=== PATIENT | female | born 1975 | race Caucasian/White ===

== ENCOUNTER 2017-12-25 09:54 | Day surgery (SDC) | payer MEDICARE ==
[~2017-12-25] VITALS: Ht 170.2 cm; Wt 57.7 kg
[~2017-12-25 09:54] MED LIST: AMIT25 PO; AMLO10 PO; AMLO5 PO; ASPI325; AZIT200SU; Amlodipine Bes2.5 MG PO; Antivert25 MG PO; Ativan1 MG PO; BACL10 PO; BUPR150T2 PO; CODACE30 PO; CYCL10 PO; DICL25ER PO; DIPH50 PO; Depo-Prove150 MG/11 IM; ENOX30I; ENOX40I SC; ENOX40I SUBQ; ESCI20 PO; FAMO20 PO; GABA300; GABA300 PO; HYDACE10B PO; HYDACE5 PO; HYDPAM25 PO; Inderal40 MG PO; LANS30EC PO; LISI5; LORA.5 PO; LOSA25 PO; METCAR500 PO; METPRE4DP PO; MULVITMINE; NEBI10 PO; Norco 5-325 Ta1 EACH PO; ONDA4ODT MM; ONDA8 PO; OXYC1TAB11 PO; OXYC5; OXYC5 PO; PARO20 PO; PARO30 PO; Percocet 5-3251 EACH PO; RANI150 PO; RXHYD5325 PO; RXHYDACE PO; RXLORA1 PO; RXTRAM50 PO; TERB250 PO; TIZA4 PO; TRAM50; TRAM50 PO; Tylenol325 MG PO; Ultram50 MG PO; WARF2; WARF5 PO; WARF6 PO; WARF7.5 PO; Zofran Odt4 MG SL
== END 2017-12-25 13:44 | disposition home or self-care (01) ==
LOC: ORSCSDS 09:54
PROVIDERS: Internal Medicine Gastroenterology
PROC: 0DBM8ZX Excision of Descending Colon, Via Natural or Artificial Opening Endoscopic, Diagnostic (ICD-10-PCS; principal; 2017-12-25 11:00)
PROC: 0DBH8ZX Excision of Cecum, Via Natural or Artificial Opening Endoscopic, Diagnostic (ICD-10-PCS; principal; 2017-12-25 11:00)
PROC: 0DBN8ZX Excision of Sigmoid Colon, Via Natural or Artificial Opening Endoscopic, Diagnostic (ICD-10-PCS; principal; 2017-12-25 11:00)
PROC: 0DBL8ZX Excision of Transverse Colon, Via Natural or Artificial Opening Endoscopic, Diagnostic (ICD-10-PCS; principal; 2017-12-25 11:00)
DX: Z86.010 Personal history of colon polyps (principal); D12.0 Benign neoplasm of cecum; D12.3 Benign neoplasm of transverse colon; D12.4 Benign neoplasm of descending colon; D12.5 Benign neoplasm of sigmoid colon; K64.8 Other hemorrhoids; K57.30 Diverticulosis of large intestine without perforation or abscess without bleeding; Z86.718 Personal history of other venous thrombosis and embolism; D68.51 Activated protein C resistance; I10 Essential (primary) hypertension; F41.8 Other specified anxiety disorders; Z87.891 Personal history of nicotine dependence; Z79.01 Long term (current) use of anticoagulants; Z79.899 Other long term (current) drug therapy
CPT/HCPCS: 88305; J2250; J7120

== ENCOUNTER 2018-03-15 00:26 | Emergency (ER) | payer MEDICARE, SELFPAY ==
[~2018-03-15] VITALS: Ht 167.6 cm; Wt 59.0 kg
[2018-03-15 00:53] LABS: BASOPHILS ABSOLUTE AUTO 0.09 K/mm3 (0.00-0.23); BASOPHILS PERCENT AUTO 1 % (0-2); EOSINOPHILS ABSOLUTE AUTO 0.07 K/mm3 (0.00-0.68); EOSINOPHILS PERCENT AUTO 1 % (0-6); Hematocrit 44.3 % (33.0-51.0); Hemoglobin 15.6 g/dL (11.5-16.0); IMMATURE GRAN ABSOLUTE AUTO 0.05 K/mm3 (0.00-0.10); IMMATURE GRAN PERCENT AUTO 0 % (0-1); LYMPHOCYTES ABSOLUTE AUTO 5.33 K/mm3 (0.84-5.20); LYMPHOCYTES PERCENT AUTO 46 % (21-46); MONOCYTES ABSOLUTE AUTO 0.91 K/mm3 (0.16-1.47); MONOCYTES PERCENT AUTO 8 % (4-13); Mean Corpuscular HGB 34.4 pg (26.0-34.0); Mean Corpuscular HGB Conc 35.2 g/dL (31.5-36.5); Mean Corpuscular Volume 98 fL (80-100); Mean Platelet Volume 9.3 fL (9.1-12.4); NEUTROPHILS ABSOLUTE AUTO 5.15 K/mm3 (1.96-9.15); NEUTROPHILS PERCENT AUTO 45 % (41-73); Platelet Count 292 K/mm3 (150-400); RDW Coefficient Variation 11.6 % (11.7-14.2); RDW Standard Deviation 41.8 fL (35.1-46.3); Red Blood Cell Count 4.54 M/mm3 (3.80-5.20)
[2018-03-15 01:17] LABS: Alanine Aminotransfer (ALT/SGP 35 U/L (12-78); Albumin, Blood 4.2 g/dL (3.4-5.0); Alk Phos 70 U/L (50-136); Anion Gap 11 mmol/L (6-16); Aspartate Aminotrans (AST/SGOT 38 U/L (12-37); Bilirubin, Total 0.3 mg/dL (0.1-1.0); Blood Urea Nitrogen 8 mg/dL (8-24); Bun/Creatinine Ratio 12.7 (12.0-20.0); CO2, Blood 22 mmol/L (21-32); Calcium, Blood 8.3 mg/dL (8.5-10.1); Chloride, Blood 111 mmol/L (98-108); Creatinine, Blood 0.63 mg/dL (0.40-1.00); Globulin, Blood 4.1 g/dL (2.2-4.0); Glomerular Filtration Rate >60 (60-); Glucose, Blood 99 mg/dL (70-99); Potassium, Blood 4.9 mmol/L (3.5-5.5); Salicylate 5.2 mg/dL (2.8-20.0); Sodium, Blood 144 mmol/L (136-145); Total Protein, Blood 8.3 g/dL (6.4-8.2)
[2018-03-15 01:25] LABS: Acetaminophen, Random <2.0 ug/mL (10.0-30.0); Ethanol (Alcohol), Blood, Med 367 mg/dL
== END 2018-03-15 01:52 | disposition home or self-care (01) ==
LOC: ER 00:26
PROVIDERS: Emergency Medicine
DX: T40.2X1A Poisoning by other opioids, accidental (unintentional), initial encounter (principal); F10.129 Alcohol abuse with intoxication, unspecified; I10 Essential (primary) hypertension; F32.9 Major depressive disorder, single episode, unspecified; Z88.5 Allergy status to narcotic agent; Z88.8 Allergy status to other drugs, medicaments and biological substances; Z79.899 Other long term (current) drug therapy; Z79.01 Long term (current) use of anticoagulants; Z87.891 Personal history of nicotine dependence; Y90.8 Blood alcohol level of 240 mg/100 ml or more
CPT/HCPCS: 80053; 84443; 85025; 99285; G0480

== ENCOUNTER → 2018-03-21 | Outpatient (CLI) | payer MEDICARE, SELFPAY | LOC: LAB 16:48 → LAB SHORT 16:48 | PROVIDERS: Registered Nurse Community Health | DX: Z12.4 Encounter for screening for malignant neoplasm of cervix (principal) | CPT/HCPCS: 87624; G0123 ==

== ENCOUNTER 2019-03-27 16:58 | Emergency (ER) | payer MEDICARE ==
[~2019-03-27] VITALS: Ht 170.2 cm; Wt 63.5 kg
[2019-03-27] MEDS ORDERED: TRAM50 PO (18:20)
== END 2019-03-27 18:27 | disposition home or self-care (01) ==
LOC: ER 16:58
DX: S50.811A Abrasion of right forearm, initial encounter (principal); M54.2 Cervicalgia; G89.29 Other chronic pain; M25.511 Pain in right shoulder; W13.4XXA Fall from, out of or through window, initial encounter; Z88.5 Allergy status to narcotic agent; Z88.8 Allergy status to other drugs, medicaments and biological substances; Z79.899 Other long term (current) drug therapy; Z79.01 Long term (current) use of anticoagulants; I10 Essential (primary) hypertension; F32.9 Major depressive disorder, single episode, unspecified; G40.909 Epilepsy, unspecified, not intractable, without status epilepticus; Z87.891 Personal history of nicotine dependence
CPT/HCPCS: 72040; 73030; 73080; 73110; 99283-25

== ENCOUNTER 2020-08-03 20:02 | Observation (INO) | payer SELFPAY ==
[~2020-08-03] VITALS: Ht 170.2 cm; Wt 66.2 kg
[~2020-08-03 20:02] MED LIST changes: -Inderal40 MG PO; -WARF5 PO
[2020-08-03 20:28] LABS: BASOPHILS ABSOLUTE AUTO 0.16 K/mm3 (0.00-0.23); BASOPHILS PERCENT AUTO 2 % (0-2); EOSINOPHILS ABSOLUTE AUTO 0.17 K/mm3 (0.00-0.68); EOSINOPHILS PERCENT AUTO 2 % (0-6); Hematocrit 42.4 % (33.0-51.0); Hemoglobin 14.7 g/dL (11.5-16.0); IMMATURE GRAN ABSOLUTE AUTO 0.04 K/mm3 (0.00-0.10); IMMATURE GRAN PERCENT AUTO 0 % (0-1); LYMPHOCYTES PERCENT AUTO 42 % (21-46); MONOCYTES ABSOLUTE AUTO 0.95 K/mm3 (0.16-1.47); MONOCYTES PERCENT AUTO 10 % (4-13); Mean Corpuscular HGB 34.8 pg (26.0-34.0); Mean Corpuscular HGB Conc 34.7 g/dL (31.5-36.5); Mean Corpuscular Volume 100 fL (80-100); NEUTROPHILS ABSOLUTE AUTO 4.15 K/mm3 (1.96-9.15); NEUTROPHILS PERCENT AUTO 44 % (41-73); Platelet Count 308 K/mm3 (150-400); RDW Coefficient Variation 11.8 % (11.7-14.2); RDW Standard Deviation 43.7 fL (35.1-46.3); Red Blood Cell Count 4.23 M/mm3 (3.80-5.20); White Blood Cell Count 9.47 K/mm3 (4.00-11.30)
[2020-08-03 20:40] LABS: Alanine Aminotransfer (ALT/SGP 36 U/L (12-78); Albumin, Blood 4.2 g/dL (3.4-5.0); Albumin/Globulin Ratio 1.1 (0.8-1.8); Alk Phos 69 U/L (50-136); Anion Gap 7 mmol/L (6-16); Aspartate Aminotrans (AST/SGOT 53 U/L (12-37); Bilirubin, Total 0.2 mg/dL (0.1-1.0); Blood Urea Nitrogen 8 mg/dL (8-24); Bun/Creatinine Ratio 11.2 (12.0-20.0); CO2, Blood 25 mmol/L (21-32); Calcium, Blood 8.8 mg/dL (8.5-10.1); Chloride, Blood 114 mmol/L (98-108); Creatinine, Blood 0.72 mg/dL (0.40-1.00); Globulin, Blood 3.9 g/dL (2.2-4.0); Glomerular Filtration Rate >60 (60-); Glucose, Blood 89 mg/dL (70-99); Salicylate 5.9 mg/dL (2.8-20.0); Sodium, Blood 146 mmol/L (136-145); Thyroxine (T4) 7.1 ug/dL (4.8-13.9); Total Protein, Blood 8.1 g/dL (6.4-8.2)
[2020-08-03 21:15] LABS: Ethanol (Alcohol), Blood, Med 412 mg/dL
[2020-08-03 21:16] LABS: Acetaminophen, Random <2.0 ug/mL (10.0-30.0)
[2020-08-03] MEDS ORDERED: WARF5 (23:02)
[2020-08-03] MEDS ORDERED: Inderal40 MG PO (23:03)
[2020-08-03] MEDS ORDERED: SERT50 PO (23:03)
[2020-08-03] MEDS ORDERED: BUSP10 PO (23:04)
[2020-08-03] MEDS ORDERED: FENOFIBRATE130 MG PO (23:04)
[2020-08-03 23:18] LABS: Source, Urine Clean Catch
[2020-08-03 23:25] LABS: Appearance, Urine Clear (Clear); Bilirubin, Urine Neg (Neg); Blood, Urine 1+ (Neg); Color, Urine Yellow (P-Yellow); Glucose Qualitative, Urine Neg (Neg); Ketones, Urine Neg (Neg); Leukocyte Esterase, Urine Neg (Neg); Nitrite, Urine Neg (Neg); Protein, Urine Neg (Neg); Urobilinogen, Urine NORM (Normal)
--- NOTE | 2020-08-03 23:33 | NUR ---
ASSUMED PT CARE PT ARRIVED FROM ED ON GURBIXBY. PT ALERT AND ORIENTED AND ABLE TO MAKE NEEDS KNOWN. COOPERATIVE WITH CARES AT FIRST; HOWEVER, ONCE REINFORMED REGARDING TWO MD HOLD AND NEEDING TO READ PT HER CIVIL RIGHTS; SHE DECLINED AND STATED SHE "WE AREN'T DOING THAT, I WASN'T TRYING TO KILL MYSELF." "I HAVE APPTS TOMORROW AND ALL THIS WEEK. I SEE MY KIDS ON SUNDAY." INFORMED PT THAT THEY COULD READDRESS TWO MD HOLD STATUS TOMORROW IN THE MORNING WITH THE PHYSICIANS. PT KEPT SAYING NO THAT SHE CAN'T STAY HERE AND THAT SHE NEEDS HER MEDS. ASKED WHAT PHARMACY SHE USES OR IF SHE CAN TELL ME WHAT SHE TAKES. PT REFUSED SAYING HER DOCTORS IN [place] STATED NOT TO RECEIVE ANY CARE HERE AT [facility]. STATES HER AUNT IS ON THE SHUTTLER AND THEREFORE, SHE CAN'T GIVE ME ANY INFORMATION. PT BECAME MORE UPSET WHEN SHE WAS INFORMED THAT SHE WAS BEING MONITORED ON THE CAMERA SYSTEM AND WOULD HAVE A SITTER OUTSIDE HER DOOR D/T HER BEING A HIGH SUICIDE RISK. PT STATED SHE WASN'T TRYING TO KILL HERSELF, BUT THEN STATED THAT WHO EVER FOUND HER SHOULD HAVE LEFT HER TO . REINFORCED TO PT THAT STATEMENTS LIKE THAT DEMONSTRATES SUICIDE IDEATION. SHE YELLED, "NO" AND THAT SHE ONLY TOOK "4 PILLS" REFERRING TO HER PROPRANOLOL 20MG TABLETS. PT REFUSED BLOOD IF NEEDED AND STATED WE CAN GIVE INFO OUT ONLY TO HER MOM AND DAD. CALL LIGHT IS WITHIN REACH. NS INFUSING AT 100MLS/HR. BP'S TRENDING DOWN; LAST BP 68/60; HR 69; RESP RATE 20; SPO2 97% ON RA. CALL LIGHT IS WITHIN REACH; WILL CONTINUE TO MONITOR BP AND PULSE AND TREAT ACCORDINGLY.
[2020-08-03 23:39] LABS: U Amphetamine Screen Not Detected; U Barbituate Screen Not Detected; U Benzodiazapine Screen Not Detected; U Buprenorphine Screen Not Detected; U Cannabinoids Screen Not Detected; U Cocaine Screen Not Detected; U Methadone Screen Not Detected; U Methamphetamine Screen Not Detected; U Opiates Screen Not Detected; U Oxycodone Screen DETECTED; U Phencyclidine Screen Not Detected; U Propoxyphene Screen Not Detected
[2020-08-03 23:41] LABS: Bacteria Many /hpf; Red Blood Cells, Urine Rare /hpf (0-2); Squamous Epithelial Cells Few /hpf (Few)
--- NOTE | 2020-08-04 00:33 | NUR ---
POISON CONTROL ALEX CALLED FOR AN UPDATE. FULL SET OF VITALS GIVEN. RECOMMENDATION TO REDRAW ASA LEVEL AT 0200 TO SEE IF WE ARE STILL TRENDING UP. ALSO RECOMMENDED TO GIVE BENZODIAZAPINES INSTEAD OF HALDOL D/T POTENTIAL CARDIAC SIDE EFFECTS, WELL TO CONSIDER DOPAMINE IF BP'S CAN'T SUSTAIN WITH FLUIDS.
[2020-08-04 03:22] LABS: BASOPHILS ABSOLUTE AUTO 0.08 K/mm3 (0.00-0.23); BASOPHILS PERCENT AUTO 1 % (0-2); EOSINOPHILS PERCENT AUTO 2 % (0-6); Hematocrit 35.2 % (33.0-51.0); Hemoglobin 12.4 g/dL (11.5-16.0); IMMATURE GRAN ABSOLUTE AUTO 0.02 K/mm3 (0.00-0.10); IMMATURE GRAN PERCENT AUTO 0 % (0-1); LYMPHOCYTES PERCENT AUTO 36 % (21-46); MONOCYTES ABSOLUTE AUTO 1.08 K/mm3 (0.16-1.47); MONOCYTES PERCENT AUTO 16 % (4-13); Mean Corpuscular HGB 34.5 pg (26.0-34.0); Mean Corpuscular HGB Conc 35.2 g/dL (31.5-36.5); Mean Corpuscular Volume 98 fL (80-100); Mean Platelet Volume 9.6 fL (9.1-12.4); NEUTROPHILS ABSOLUTE AUTO 3.05 K/mm3 (1.96-9.15); NEUTROPHILS PERCENT AUTO 45 % (41-73); Platelet Count 227 K/mm3 (150-400); RDW Coefficient Variation 11.7 % (11.7-14.2); RDW Standard Deviation 42.8 fL (35.1-46.3); Red Blood Cell Count 3.59 M/mm3 (3.80-5.20); White Blood Cell Count 6.73 K/mm3 (4.00-11.30)
[2020-08-04 03:44] LABS: Alanine Aminotransfer (ALT/SGP 29 U/L (12-78); Albumin, Blood 3.3 g/dL (3.4-5.0); Albumin/Globulin Ratio 1.1 (0.8-1.8); Alk Phos 52 U/L (50-136); Anion Gap 8 mmol/L (6-16); Aspartate Aminotrans (AST/SGOT 44 U/L (12-37); Bilirubin, Total 0.2 mg/dL (0.1-1.0); Blood Urea Nitrogen 7 mg/dL (8-24); Bun/Creatinine Ratio 12.1 (12.0-20.0); CO2, Blood 20 mmol/L (21-32); Calcium, Blood 8.2 mg/dL (8.5-10.1); Chloride, Blood 117 mmol/L (98-108); Creatinine, Blood 0.58 mg/dL (0.40-1.00); Globulin, Blood 2.9 g/dL (2.2-4.0); Glomerular Filtration Rate >60 (60-); Glucose, Blood 83 mg/dL (70-99); Potassium, Blood 3.5 mmol/L (3.5-5.5); Sodium, Blood 145 mmol/L (136-145); Total Protein, Blood 6.2 g/dL (6.4-8.2)
--- NOTE | 2020-08-04 03:58 | NUR ---
POISON CONTROL SPOKE WITH GELACIO REGARDING ASPIRIN LEVEL. NO FURTHER NEED TO REDRAW ASPIRIN LEVEL PER RECOMMENDATION.
[2020-08-04 04:39] LABS: International Normalized Ratio 2.51; Prothrombin Time Results 25.5 Sec (9.7-11.5)
--- NOTE | 2020-08-04 06:35 | NUR ---
END OF SHIFT SUMMARY NO SIGNIFICANT CHANGES SINCE LAST ENTRY. PT HAS SLEPT MOST OF SHIFT. PT VERY RESISTANT TO CARE; REFUSED LABS. THEREFORE, HAD TO DRAW FROM PERIPHERAL IV. POISON CONTROL UPDATED REGARDING ASPIRIN LAB LEVELS. STATED THEY WOULD CALL FOR AN UPDATE AGAIN LATER IN THE MORNING. BP'S STABLE WITH SBP >90 AND MAP >60. NSR WITH HR 70-80'S. PT UP TO BSC X1 WITH STANDBY ASSIST NEEDED FOR CORD MANAGEMENT. PT DENIES SUICIDE IDEATION. CONSULT PLACED FOR PSYCH. CALL LIGHT WITHIN REACH. WILL CONTINUE TO MONITOR UNTIL REPORT IS HANDED OFF TO ONCOMING RN.
--- NOTE | 2020-08-04 07:55 | NUR ---
Received report from Shira SANTOS. Patient laying supine in bed and awakens easily for report. She denies any suicide attempt and current suicidal idealations. She states she wants to see Psychiatry asas this am as she has appts. she needs to go to. I advised her it would probably be around [id number] befor he gets to ICU and she cloased eye and returned to resting. She is on RA and sats >90%. She is independent in bed and is able to position self for comfort. She is alert and oriented and is able to communicate her needs. ROBERTO. VSS, See EMR. She has 20ga IV left hand and is infusing NS at 100ml/hr. She is afebrile at 98.0. She is able to use bedside cammode.
--- NOTE | 2020-08-04 08:04 | NUR ---
She is on high risk suicide watch and is on ca,era and sitter outside door.
--- NOTE | 2020-08-04 09:30 | NUR ---
Renee from by to talk with patient, Dr Stephens by as well. Patient has been pleasant and cooperative with care. Continues to deny suicidal idealation. patient independent in room .
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
--- NOTE | 2020-08-04 11:17 | NUR ---
Dr Stephens called and has talked with Dr reagan and has released hold and is discharging patient home with follow up to [facility] toomorrow.
--- NOTE | 2020-08-04 11:56 | NUR ---
PATIENT FATHER BROUGHT CLOSES AND SHE GOT DRESSED. SHE WAS GIVEN WRITTEN DISCHARGE INSTRUCTIONS AND RETURNED UNDERSTANDING. IV'S BILATERAL PULLED INTACT AND WRAPPED ION COHBAN. SHE AMBULATED TO EXIT AND WENT HOME POV, REFUSED WHEELCHAIR TO EXIT.
== END 2020-08-04 11:55 | disposition home or self-care (01) ==
LOC: ER 20:02 → ICUW 20:03
PROVIDERS: Emergency Medicine; ADMIT Internal Medicine
DX: T44.7X2A Poisoning by beta-adrenoreceptor antagonists, intentional self-harm, initial encounter (principal); F10.129 Alcohol abuse with intoxication, unspecified; F32.9 Major depressive disorder, single episode, unspecified; D68.51 Activated protein C resistance; I10 Essential (primary) hypertension; F17.210 Nicotine dependence, cigarettes, uncomplicated; Y90.8 Blood alcohol level of 240 mg/100 ml or more; Z79.01 Long term (current) use of anticoagulants; Z86.69 Personal history of other diseases of the nervous system and sense organs; Z88.5 Allergy status to narcotic agent; Z88.8 Allergy status to other drugs, medicaments and biological substances; Z79.899 Other long term (current) drug therapy
CPT/HCPCS: 36415; 71045; 80053; 81001; 81025; 82330; 84436; 85025; 85610; 87077; 87086; 87186; 93005; 93010; 96361; 96365; 96366; 96375; 99285-25; A9270; G0378; G0480; J0610; J1200; J1630; J7030

== ENCOUNTER 2020-09-11 22:15 | Emergency (ER) | payer MEDICARE ==
[~2020-09-11] VITALS: Ht 167.6 cm; Wt 68.0 kg
[~2020-09-11 22:15] MED LIST changes: +BUSP10 PO; +FENOFIBRATE130 MG PO; +Inderal40 MG PO; +SERT50 PO; +WARF5
== END 2020-09-11 23:06 | disposition home or self-care (01) ==
LOC: ER 22:15
DX: S60.221A Contusion of right hand, initial encounter (principal); I10 Essential (primary) hypertension; F32.9 Major depressive disorder, single episode, unspecified; Z79.01 Long term (current) use of anticoagulants; Z88.5 Allergy status to narcotic agent; Z88.8 Allergy status to other drugs, medicaments and biological substances; Z79.899 Other long term (current) drug therapy; Z87.891 Personal history of nicotine dependence; W01.10XA Fall on same level from slipping, tripping and stumbling with subsequent striking against unspecified object, initial encounter
CPT/HCPCS: 36415; 73130; 99283-25

== ENCOUNTER 2020-11-21 23:25 | Emergency (ER) | payer MEDICARE ==
[~2020-11-21] VITALS: Ht 170.2 cm; Wt 67.6 kg
[2020-11-22 02:56] LABS: BASOPHILS ABSOLUTE AUTO 0.07 K/mm3 (0.00-0.23); BASOPHILS PERCENT AUTO 1 % (0-2); EOSINOPHILS ABSOLUTE AUTO 0.26 K/mm3 (0.00-0.68); EOSINOPHILS PERCENT AUTO 4 % (0-6); Hematocrit 32.8 % (33.0-51.0); Hemoglobin 10.2 g/dL (11.5-16.0); IMMATURE GRAN ABSOLUTE AUTO 0.06 K/mm3 (0.00-0.10); IMMATURE GRAN PERCENT AUTO 1 % (0-1); LYMPHOCYTES ABSOLUTE AUTO 1.33 K/mm3 (0.84-5.20); LYMPHOCYTES PERCENT AUTO 20 % (21-46); MONOCYTES ABSOLUTE AUTO 1.11 K/mm3 (0.16-1.47); MONOCYTES PERCENT AUTO 16 % (4-13); Mean Corpuscular HGB 26.8 pg (26.0-34.0); Mean Corpuscular HGB Conc 31.1 g/dL (31.5-36.5); Mean Corpuscular Volume 86 fL (80-100); Mean Platelet Volume 10.1 fL (9.1-12.4); NEUTROPHILS ABSOLUTE AUTO 3.93 K/mm3 (1.96-9.15); NEUTROPHILS PERCENT AUTO 58 % (41-73); Platelet Count 372 K/mm3 (150-400); RDW Coefficient Variation 16.5 % (11.7-14.2); RDW Standard Deviation 51.6 fL (35.1-46.3); Red Blood Cell Count 3.81 M/mm3 (3.80-5.20); White Blood Cell Count 6.76 K/mm3 (4.00-11.30)
[2020-11-22 03:15] LABS: Alanine Aminotransfer (ALT/SGP 16 U/L (12-78); Albumin, Blood 3.1 g/dL (3.4-5.0); Albumin/Globulin Ratio 0.7 (0.8-1.8); Alk Phos 70 U/L (50-136); Anion Gap 6 mmol/L (6-16); Aspartate Aminotrans (AST/SGOT 14 U/L (12-37); Bilirubin, Total 0.2 mg/dL (0.1-1.0); Blood Urea Nitrogen 7 mg/dL (8-24); Bun/Creatinine Ratio 10.5 (12.0-20.0); CO2, Blood 26 mmol/L (21-32); Calcium, Blood 9.2 mg/dL (8.5-10.1); Chloride, Blood 106 mmol/L (98-108); Creatinine, Blood 0.66 mg/dL (0.40-1.00); Globulin, Blood 4.3 g/dL (2.2-4.0); Glomerular Filtration Rate >60 (60-); Glucose, Blood 113 mg/dL (70-99); Potassium, Blood 3.8 mmol/L (3.5-5.5); Sodium, Blood 138 mmol/L (136-145); Total Protein, Blood 7.4 g/dL (6.4-8.2)
[2020-11-22 03:51] LABS: Influenza A, PCR NEGATIVE (NEGATIVE); Influenza B, PCR NEGATIVE (NEGATIVE); Resp Syncytial Virus, PCR NEGATIVE (NEGATIVE); SARS-Cov-2 (COVID-19) PCR, MMC NEGATIVE (NEGATIVE)
[2021-02-25] MEDS ORDERED: LOSA50 PO (11:50)
[2021-02-25] MEDS ORDERED: BUPR75 PO (11:50)
[2021-02-25] MEDS ORDERED: FAMO20 PO (11:50)
[2021-02-25] MEDS ORDERED: PREG150 PO (11:51)
== END 2020-11-22 03:23 | disposition short-term general hospital (02) ==
LOC: ER 23:25
PROVIDERS: Emergency Medicine
DX: R51.9 Headache, unspecified (principal)
CPT/HCPCS: 0241U; 36415; 72132; 80053; 82947; 85025; 96374; 99285-25; A9270; J2270; Q9967

== ENCOUNTER 2021-01-02 19:23 | Emergency (ER) | payer MEDICARE ==
[~2021-01-02] VITALS: Ht 167.6 cm; Wt 72.6 kg
== END 2021-01-02 20:19 | disposition home or self-care (01) ==
LOC: ER 19:23
DX: Z02.89 Encounter for other administrative examinations (principal); I10 Essential (primary) hypertension; G40.909 Epilepsy, unspecified, not intractable, without status epilepticus; F17.210 Nicotine dependence, cigarettes, uncomplicated; Z79.01 Long term (current) use of anticoagulants; Z88.5 Allergy status to narcotic agent; Z88.8 Allergy status to other drugs, medicaments and biological substances; Z88.1 Allergy status to other antibiotic agents
CPT/HCPCS: 99282

== ENCOUNTER 2021-08-29 06:30 | Emergency (ER) | payer MEDICARE, OTHER ==
[~2021-08-29] VITALS: Ht 170.2 cm; Wt 61.2 kg
[~2021-08-29 06:30] MED LIST changes: +BUPR75 PO; +LOSA50 PO; +PREG150 PO
== END 2021-08-29 06:58 | disposition left against medical advice (07) ==
LOC: ER 06:30
DX: Z53.21 Procedure and treatment not carried out due to patient leaving prior to being seen by health care provider (principal)

== ENCOUNTER 2021-08-31 09:42 | Emergency (ER) | payer MEDICARE, OTHER ==
[~2021-08-31] VITALS: Ht 170.2 cm; Wt 59.0 kg
[2021-08-31 10:23] LABS: BASOPHILS PERCENT AUTO 1 % (0-2); EOSINOPHILS ABSOLUTE AUTO 0.01 K/mm3 (0.00-0.68); EOSINOPHILS PERCENT AUTO 0 % (0-6); Hematocrit 36.5 % (33.0-51.0); Hemoglobin 13.4 g/dL (11.5-16.0); IMMATURE GRAN ABSOLUTE AUTO 0.03 K/mm3 (0.00-0.10); IMMATURE GRAN PERCENT AUTO 0 % (0-1); LYMPHOCYTES PERCENT AUTO 7 % (21-46); MONOCYTES ABSOLUTE AUTO 0.84 K/mm3 (0.16-1.47); MONOCYTES PERCENT AUTO 11 % (4-13); Mean Corpuscular HGB 35.7 pg (26.0-34.0); Mean Corpuscular HGB Conc 36.7 g/dL (31.5-36.5); Mean Corpuscular Volume 97 fL (80-100); Mean Platelet Volume 9.7 fL (9.1-12.4); NEUTROPHILS ABSOLUTE AUTO 6.04 K/mm3 (1.96-9.15); NEUTROPHILS PERCENT AUTO 80 % (41-73); Platelet Count 211 K/mm3 (150-400); RDW Coefficient Variation 12.4 % (11.7-14.2); RDW Standard Deviation 44.8 fL (35.1-46.3); Red Blood Cell Count 3.75 M/mm3 (3.80-5.20); White Blood Cell Count 7.52 K/mm3 (4.00-11.30)
[2021-08-31 10:39] LABS: Prothrombin Time Results 57.1 Sec (9.7-11.5)
[2021-08-31 10:47] LABS: Alanine Aminotransfer (ALT/SGP 151 U/L (12-78); Albumin, Blood 4.4 g/dL (3.4-5.0); Albumin/Globulin Ratio 1.2 (0.8-1.8); Alk Phos 114 U/L (50-136); Anion Gap 14 mmol/L (6-16); Aspartate Aminotrans (AST/SGOT 155 U/L (12-37); Bilirubin, Total 1.2 mg/dL (0.1-1.0); Blood Urea Nitrogen 6 mg/dL (8-24); Bun/Creatinine Ratio 7.8 (12.0-20.0); CO2, Blood 26 mmol/L (21-32); Calcium, Blood 9.9 mg/dL (8.5-10.1); Chloride, Blood 97 mmol/L (98-108); Creatinine, Blood 0.77 mg/dL (0.40-1.00); Globulin, Blood 3.8 g/dL (2.2-4.0); Glomerular Filtration Rate >60 (60-); Glucose, Blood 129 mg/dL (70-99); Potassium, Blood 3.5 mmol/L (3.5-5.5); Sodium, Blood 137 mmol/L (136-145); Total Protein, Blood 8.2 g/dL (6.4-8.2)
[2021-08-31 11:02] LABS: International Normalized Ratio 6.12
[2021-08-31 12:37] LABS: Influenza A, PCR NEGATIVE (NEGATIVE); Influenza B, PCR NEGATIVE (NEGATIVE); Resp Syncytial Virus, PCR NEGATIVE (NEGATIVE); SARS-Cov-2 (COVID-19) PCR, MMC NEGATIVE (NEGATIVE)
[2021-08-31 15:13] LABS: International Normalized Ratio 1.79
[2021-08-31 15:32] LABS: Prothrombin Time Results 18.1 Sec (9.7-11.5)
[2021-08-31 16:07] LABS: BASOPHILS ABSOLUTE AUTO 0.04 K/mm3 (0.00-0.23); BASOPHILS PERCENT AUTO 1 % (0-2); EOSINOPHILS PERCENT AUTO 0 % (0-6); Hemoglobin 11.1 g/dL (11.5-16.0); IMMATURE GRAN ABSOLUTE AUTO 0.03 K/mm3 (0.00-0.10); IMMATURE GRAN PERCENT AUTO 1 % (0-1); LYMPHOCYTES ABSOLUTE AUTO 0.59 K/mm3 (0.84-5.20); LYMPHOCYTES PERCENT AUTO 11 % (21-46); MONOCYTES ABSOLUTE AUTO 0.56 K/mm3 (0.16-1.47); MONOCYTES PERCENT AUTO 11 % (4-13); Mean Corpuscular HGB 35.8 pg (26.0-34.0); Mean Corpuscular HGB Conc 35.8 g/dL (31.5-36.5); Mean Corpuscular Volume 100 fL (80-100); Mean Platelet Volume 9.5 fL (9.1-12.4); NEUTROPHILS PERCENT AUTO 77 % (41-73); Platelet Count 167 K/mm3 (150-400); RDW Coefficient Variation 12.9 % (11.7-14.2); RDW Standard Deviation 47.1 fL (35.1-46.3); White Blood Cell Count 5.22 K/mm3 (4.00-11.30)
== END 2021-08-31 20:36 | disposition short-term general hospital (02) ==
LOC: ER 09:42
PROVIDERS: Emergency Medicine
DX: K92.2 Gastrointestinal hemorrhage, unspecified (principal); R79.1 Abnormal coagulation profile; I10 Essential (primary) hypertension; G40.909 Epilepsy, unspecified, not intractable, without status epilepticus; F17.210 Nicotine dependence, cigarettes, uncomplicated; Z88.8 Allergy status to other drugs, medicaments and biological substances; Z88.5 Allergy status to narcotic agent; Z88.0 Allergy status to penicillin; Z79.899 Other long term (current) drug therapy; Z79.01 Long term (current) use of anticoagulants
CPT/HCPCS: 0241U; 36430; 70450; 80053; 85025; 85610; 85730; 86850; 86900; 86901; 93005; 93010; 96365; 96375; 96376; 99285-25; C9113; J0696; J1170; J2060; J2405; J3010; J7030; P9059

== ENCOUNTER 2021-09-21 20:08 | Emergency (ER) | payer MEDICARE, OTHER ==
[~2021-09-21] VITALS: Ht 170.2 cm; Wt 61.2 kg
== END 2021-09-21 21:10 | disposition left against medical advice (07) ==
LOC: ER 20:08
DX: S00.03XA Contusion of scalp, initial encounter (principal); S60.413A Abrasion of left middle finger, initial encounter; W01.10XA Fall on same level from slipping, tripping and stumbling with subsequent striking against unspecified object, initial encounter; Z88.5 Allergy status to narcotic agent; Z88.8 Allergy status to other drugs, medicaments and biological substances; Z88.0 Allergy status to penicillin; Z79.899 Other long term (current) drug therapy; Z79.01 Long term (current) use of anticoagulants; I10 Essential (primary) hypertension; G40.909 Epilepsy, unspecified, not intractable, without status epilepticus; F17.210 Nicotine dependence, cigarettes, uncomplicated
CPT/HCPCS: 70450; 72125; 73120

== ENCOUNTER 2021-09-21 23:13 | Emergency (ER) | payer MEDICARE, OTHER | END 2021-09-22 04:00 | disposition left against medical advice (07) | LOC: ER 23:13 | DX: Z53.21 Procedure and treatment not carried out due to patient leaving prior to being seen by health care provider (principal) ==

== ENCOUNTER 2021-09-21 23:41 | Emergency (ER) | payer MEDICARE, OTHER ==
[~2021-09-21] VITALS: Ht 170.2 cm; Wt 61.2 kg
== END 2021-09-22 00:35 | disposition home or self-care (01) ==
LOC: ER 23:41
DX: S00.03XA Contusion of scalp, initial encounter (principal); S69.90XA Unspecified injury of unspecified wrist, hand and finger(s), initial encounter; I10 Essential (primary) hypertension; G40.909 Epilepsy, unspecified, not intractable, without status epilepticus; F17.210 Nicotine dependence, cigarettes, uncomplicated; Z88.1 Allergy status to other antibiotic agents; Z88.8 Allergy status to other drugs, medicaments and biological substances; Z79.01 Long term (current) use of anticoagulants; Z79.899 Other long term (current) drug therapy; W00.0XXA Fall on same level due to ice and snow, initial encounter
CPT/HCPCS: 99282

== ENCOUNTER 2021-09-24 01:41 | Emergency (ER) | payer MEDICARE, OTHER ==
[~2021-09-24] VITALS: Ht 170.2 cm; Wt 61.2 kg
== END 2021-09-24 04:35 | disposition home or self-care (01) ==
LOC: ER 01:41
DX: S80.12XA Contusion of left lower leg, initial encounter (principal); I10 Essential (primary) hypertension; G40.909 Epilepsy, unspecified, not intractable, without status epilepticus; F17.210 Nicotine dependence, cigarettes, uncomplicated; Z88.5 Allergy status to narcotic agent; Z88.8 Allergy status to other drugs, medicaments and biological substances; Z79.01 Long term (current) use of anticoagulants; Z79.899 Other long term (current) drug therapy; Z86.718 Personal history of other venous thrombosis and embolism; X58.XXXA Exposure to other specified factors, initial encounter
CPT/HCPCS: 73590; 99283-25

== ENCOUNTER 2021-09-28 00:39 | Emergency (ER) | payer MEDICARE, OTHER ==
[~2021-09-28] VITALS: Ht 170.2 cm; Wt 59.0 kg
[2021-09-28] MEDS ORDERED: ONDA4ODT MM (03:03)
[2021-09-28] MEDS ORDERED: PROM12.5S PR (03:03)
== END 2021-09-28 03:07 | disposition home or self-care (01) ==
LOC: ER 00:39
DX: S06.0X9A Concussion with loss of consciousness of unspecified duration, initial encounter (principal); W19.XXXA Unspecified fall, initial encounter; Z88.5 Allergy status to narcotic agent; Z88.8 Allergy status to other drugs, medicaments and biological substances; Z88.0 Allergy status to penicillin; Z79.899 Other long term (current) drug therapy; Z79.01 Long term (current) use of anticoagulants; I10 Essential (primary) hypertension; G40.909 Epilepsy, unspecified, not intractable, without status epilepticus; F17.210 Nicotine dependence, cigarettes, uncomplicated
CPT/HCPCS: 70450; 96374; 96375; 99284-25; J1200; J2765

== ENCOUNTER → 2021-10-08 | Outpatient (CLI) | payer MEDICARE, OTHER ==
[~2021-10-08] MED LIST changes: +DEXA4 PO; +PROM12.5S PR
== END | disposition home or self-care (01) ==
LOC: LAB SHORT 13:15
DX: Z20.822 Contact with and (suspected) exposure to COVID-19 (principal)
CPT/HCPCS: U0003

== ENCOUNTER 2021-12-16 21:21 | Emergency (ER) | payer MEDICARE, OTHER ==
[~2021-12-16] VITALS: Ht 170.2 cm; Wt 63.5 kg
[2021-12-16 22:10] LABS: BASOPHILS ABSOLUTE AUTO 0.08 K/mm3 (0.00-0.23); BASOPHILS PERCENT AUTO 2 % (0-2); EOSINOPHILS ABSOLUTE AUTO 0.03 K/mm3 (0.00-0.68); EOSINOPHILS PERCENT AUTO 1 % (0-6); Hematocrit 39.1 % (33.0-51.0); Hemoglobin 13.7 g/dL (11.5-16.0); IMMATURE GRAN ABSOLUTE AUTO 0.03 K/mm3 (0.00-0.10); IMMATURE GRAN PERCENT AUTO 1 % (0-1); LYMPHOCYTES ABSOLUTE AUTO 1.29 K/mm3 (0.84-5.20); LYMPHOCYTES PERCENT AUTO 29 % (21-46); MONOCYTES ABSOLUTE AUTO 0.66 K/mm3 (0.16-1.47); MONOCYTES PERCENT AUTO 15 % (4-13); Mean Corpuscular HGB 33.7 pg (26.0-34.0); Mean Corpuscular Volume 96 fL (80-100); NEUTROPHILS ABSOLUTE AUTO 2.38 K/mm3 (1.96-9.15); NEUTROPHILS PERCENT AUTO 53 % (41-73); Platelet Count 180 K/mm3 (150-400); RDW Coefficient Variation 12.6 % (11.7-14.2); RDW Standard Deviation 45.1 fL (35.1-46.3); Red Blood Cell Count 4.06 M/mm3 (3.80-5.20); White Blood Cell Count 4.47 K/mm3 (4.00-11.30)
[2021-12-16 22:27] LABS: Alanine Aminotransfer (ALT/SGP 177 U/L (12-78); Albumin, Blood 4.4 g/dL (3.4-5.0); Alk Phos 155 U/L (50-136); Anion Gap 12 mmol/L (6-16); Aspartate Aminotrans (AST/SGOT 485 U/L (12-37); Bilirubin, Total 0.6 mg/dL (0.1-1.0); Blood Urea Nitrogen 5 mg/dL (8-24); Bun/Creatinine Ratio 9.3 (12.0-20.0); CO2, Blood 24 mmol/L (21-32); Calcium, Blood 9.2 mg/dL (8.5-10.1); Chloride, Blood 94 mmol/L (98-108); Creatinine, Blood 0.54 mg/dL (0.40-1.00); Ethanol (Alcohol), Blood, Med 258 mg/dL; Globulin, Blood 4.2 g/dL (2.2-4.0); Glomerular Filtration Rate >60 (60-); Glucose, Blood 93 mg/dL (70-99); Potassium, Blood 4.4 mmol/L (3.5-5.5); Sodium, Blood 130 mmol/L (136-145); Total Protein, Blood 8.6 g/dL (6.4-8.2)
[2021-12-16 22:28] LABS: International Normalized Ratio 1.75; Prothrombin Time Results 17.7 Sec (9.7-11.5)
[2021-12-17 03:14] LABS: Influenza A, PCR NEGATIVE (NEGATIVE); Influenza B, PCR NEGATIVE (NEGATIVE); Resp Syncytial Virus, PCR NEGATIVE (NEGATIVE); SARS-Cov-2 (COVID-19) PCR, MMC NEGATIVE (NEGATIVE)
== END 2021-12-17 04:15 | disposition short-term general hospital (02) ==
LOC: ER 21:21
PROVIDERS: Physician Assistant; Student in an Organized Health Care Education/Training Program
DX: K92.0 Hematemesis (principal); K92.1 Melena; F10.20 Alcohol dependence, uncomplicated; Y90.8 Blood alcohol level of 240 mg/100 ml or more; Z20.822 Contact with and (suspected) exposure to COVID-19; I10 Essential (primary) hypertension; G40.909 Epilepsy, unspecified, not intractable, without status epilepticus; F17.210 Nicotine dependence, cigarettes, uncomplicated; Z88.8 Allergy status to other drugs, medicaments and biological substances; Z88.5 Allergy status to narcotic agent; Z88.1 Allergy status to other antibiotic agents; Z79.01 Long term (current) use of anticoagulants; Z79.899 Other long term (current) drug therapy
CPT/HCPCS: 0241U; 36415; 80053; 82272; 83690; 85025; 85610; 85730; 86850; 86900; 86901; 93005; 93010; 96365; 96375; 99285-25; A9270; C9113; G0480; J2405; J3430; J7030; P9059

== ENCOUNTER 2022-04-08 08:12 | Inpatient (IN) | payer MEDICARE, OTHER ==
[~2022-04-08] VITALS: Ht 167.6 cm; Wt 66.5 kg
[2022-04-08 08:57] LABS: BASOPHILS ABSOLUTE AUTO 0.09 K/mm3 (0.00-0.23); BASOPHILS PERCENT AUTO 1 % (0-2); EOSINOPHILS ABSOLUTE AUTO 0.01 K/mm3 (0.00-0.68); EOSINOPHILS PERCENT AUTO 0 % (0-6); Hematocrit 40.9 % (33.0-51.0); Hemoglobin 14.6 g/dL (11.5-16.0); IMMATURE GRAN ABSOLUTE AUTO 0.07 K/mm3 (0.00-0.10); IMMATURE GRAN PERCENT AUTO 1 % (0-1); LYMPHOCYTES ABSOLUTE AUTO 1.12 K/mm3 (0.84-5.20); LYMPHOCYTES PERCENT AUTO 10 % (21-46); MONOCYTES ABSOLUTE AUTO 1.43 K/mm3 (0.16-1.47); MONOCYTES PERCENT AUTO 12 % (4-13); Mean Corpuscular HGB Conc 35.7 g/dL (31.5-36.5); Mean Corpuscular Volume 92 fL (80-100); Mean Platelet Volume 9.9 fL (9.1-12.4); NEUTROPHILS ABSOLUTE AUTO 8.79 K/mm3 (1.96-9.15); NEUTROPHILS PERCENT AUTO 76 % (41-73); Platelet Count 225 K/mm3 (150-400); RDW Coefficient Variation 15.1 % (11.7-14.2); RDW Standard Deviation 51.5 fL (35.1-46.3); Red Blood Cell Count 4.43 M/mm3 (3.80-5.20); White Blood Cell Count 11.51 K/mm3 (4.00-11.30)
[2022-04-08] MEDS ORDERED: Inderal 20 mg T20 MG (08:57)
[2022-04-08 09:13] LABS: Albumin, Blood 3.5 g/dL (3.4-5.0); Albumin/Globulin Ratio 0.8 (0.8-1.8); Bilirubin, Total 0.6 mg/dL (0.1-1.0); Bun/Creatinine Ratio 18.7 (12.0-20.0); Calcium, Blood 9.6 mg/dL (8.5-10.1); Creatinine, Blood 0.54 mg/dL (0.40-1.00); Globulin, Blood 4.5 g/dL (2.2-4.0); Potassium, Blood 3.9 mmol/L (3.5-5.5)
[2022-04-08 09:21] LABS: Prothrombin Time Results 79.7 Sec (9.7-11.5)
[2022-04-08 09:26] LABS: International Normalized Ratio 8.75
[2022-04-08 09:44] LABS: Influenza A, PCR NEGATIVE (NEGATIVE); Influenza B, PCR NEGATIVE (NEGATIVE); Resp Syncytial Virus, PCR NEGATIVE (NEGATIVE)
[2022-04-08 09:56] LABS: SARS-Cov-2 (COVID-19) PCR, MMC POSITIVE (NEGATIVE)
--- NOTE | 2022-04-08 14:10 | NUR ---
TRANSFER UPDATE REPORT RECIEVED FROM ER NURSE AT 1230. PT ARRIVED TO PCU AT 1250 VIA GURNEY AND ON RA. PT ABLE TO TRANSFER SELF FROM GURNEY TO PCU BED WITH MINIMAL ASSISTANCE, TOLERATED WELL. PT ABLE TO POSITION SELF IN BED WITH NO ASSISTANCE. PT REPORTS STOMACH PAIN 6/10 UPON ARRIVAL. PT ASKING FOR ICE CHIPS, INFORMED PT THAT THE ORDERS ARE FOR NPO AT THIS TIME BUT WILL ASK DOCTOR ABOUT ICE CHIPS, DOCTOR APPROVED ICE CHIPS.
[2022-04-08 14:35] LABS: BASOPHILS ABSOLUTE AUTO 0.04 K/mm3 (0.00-0.23); BASOPHILS PERCENT AUTO 1 % (0-2); EOSINOPHILS ABSOLUTE AUTO 0.17 K/mm3 (0.00-0.68); EOSINOPHILS PERCENT AUTO 2 % (0-6); Hematocrit 34.8 % (33.0-51.0); Hemoglobin 12.4 g/dL (11.5-16.0); IMMATURE GRAN ABSOLUTE AUTO 0.03 K/mm3 (0.00-0.10); IMMATURE GRAN PERCENT AUTO 0 % (0-1); LYMPHOCYTES ABSOLUTE AUTO 1.01 K/mm3 (0.84-5.20); LYMPHOCYTES PERCENT AUTO 13 % (21-46); MONOCYTES ABSOLUTE AUTO 1.59 K/mm3 (0.16-1.47); MONOCYTES PERCENT AUTO 20 % (4-13); Mean Corpuscular HGB 33.1 pg (26.0-34.0); Mean Corpuscular HGB Conc 35.6 g/dL (31.5-36.5); Mean Corpuscular Volume 93 fL (80-100); Mean Platelet Volume 9.8 fL (9.1-12.4); NEUTROPHILS ABSOLUTE AUTO 5.23 K/mm3 (1.96-9.15); NEUTROPHILS PERCENT AUTO 65 % (41-73); Platelet Count 169 K/mm3 (150-400); RDW Coefficient Variation 15.2 % (11.7-14.2); RDW Standard Deviation 52.1 fL (35.1-46.3); Red Blood Cell Count 3.75 M/mm3 (3.80-5.20); White Blood Cell Count 8.07 K/mm3 (4.00-11.30)
[2022-04-08 14:50] LABS: International Normalized Ratio 1.71
[2022-04-08 14:52] LABS: Prothrombin Time Results 17.3 Sec (9.7-11.5)
--- NOTE | 2022-04-08 18:42 | NUR ---
SHIFT SUMMARY PT A/O X4. PT ANXIOUS AT TIMES, ESPECIALLY WHEN TALKING WITH DOCTOR. PT BP'S ELEVATED SINCE ARRIVAL TO HOSPITAL. OTHER VSS SINCE ARRIVING TO PCU WITH O2 SATS > 96% ON RA. NO REPORT OF CHEST PAIN/PRESSURE SINCE ARRIVAL TO UNIT. NO REPORT OF SOB/DYSPNEA SINCE ARRIVAL TO UNIT. PT REPORTS CONSTANT ABDOMINAL PAIN, TREATING PER EMAR. PT HAS EPISODES OF DRY HEAVES, SOME EPISODES THE PT PRODUCES SMALL AMOUNTS OF CLEAR AND SLIGHT LIU COLORED MUCUS. PT NPO WITH ALLOWANCE OF ICE CHIPS PER ORDERS. PT CONSTANTLY REQUESTING PAIN MEDS DURING SHIFT, REPORTS "THE MED ICATION DOES NOT WORK FOR VERY LONG."
[2022-04-09 06:01] LABS: Albumin, Blood 2.9 g/dL (3.4-5.0); Albumin/Globulin Ratio 0.8 (0.8-1.8); Bilirubin, Total 0.9 mg/dL (0.1-1.0); Bun/Creatinine Ratio 10.3 (12.0-20.0); Calcium, Blood 8.6 mg/dL (8.5-10.1); Creatinine, Blood 0.58 mg/dL (0.40-1.00); Globulin, Blood 3.7 g/dL (2.2-4.0); Potassium, Blood 3.3 mmol/L (3.5-5.5); Total Protein, Blood 6.6 g/dL (6.4-8.2)
--- NOTE | 2022-04-09 06:39 | NUR ---
NOC SHIFT SUMMARY PT ORIENTED X4 OVERNIGHT, CIWAS 6-14 W/PRN ATIVAN GIVEN X1. NAUSEA BUT NO VOMITING OVERNIGHT. HYPERTENSIVE WITH PAIN EPISODES - PT W/COMPLAINTS OF 6-8/10 ABD AND BACK PAIN. NOTIFIED ON-CALL MD DR. MELODY SUAREZ OF PT FEELING IF PAIN CONTROL WASN'T ADEQUATE - PT REQUESTING PAIN MEDICATIONS 45M-1HR AFTER ADMIN. MD PLACED ORDER FOR IV MORPHINE INSTEAD OF FENTANYL. PT STATES RELIEF AND BP NORMALIZES AFTER ADMINSTRATION OF PRN PAIN MEDICATIONS. PT RUNNING OCTEOTRIDE AND PROTONIX GTTS, PK POWERGLIDE NOT DRAWING THIS AM AND PT DRAWN PERIPHERALLY FOR AM LABS. PT UP SBA TO BSC OVERNIGHT, TOLERATING WELL. WILL CONTINUE TO MONITOR AND PASS ON TO DAY RN
[2022-04-09 07:13] LABS: Hematocrit 34.6 % (33.0-51.0); Hemoglobin 12.1 g/dL (11.5-16.0); Mean Corpuscular HGB 33.1 pg (26.0-34.0); Mean Corpuscular Volume 95 fL (80-100); Mean Platelet Volume 10.4 fL (9.1-12.4); Platelet Count 174 K/mm3 (150-400); RDW Coefficient Variation 15.5 % (11.7-14.2); RDW Standard Deviation 53.7 fL (35.1-46.3); Red Blood Cell Count 3.66 M/mm3 (3.80-5.20); White Blood Cell Count 6.15 K/mm3 (4.00-11.30)
[2022-04-09 07:40] LABS: International Normalized Ratio 1.74; Prothrombin Time Results 17.6 Sec (9.7-11.5)
--- NOTE | 2022-04-09 17:13 | NUR ---
SHIFT SUMMARY PT HAS BEEN RESTING IN BED THROUGHOUT THE DAY, THEY HAVE BEEN ASLEEP AT THE START OF MOST ENCOUNTERS. PT HAS C/O 7/10 ABDOMINAL PAIN THAT IS TEMPORARILY ALLEVIATED TO 3/10 WITH MEDICATION. PT HAS NOT BEEN ORIENTED TO TIME/DATE AND HAS NOT BEEN ABLE TO TRACK TIME INTERVALS AND, A RESULT, HAS USED THEIR CALL LIGHT FREQUENTLY FOR THE SAME REQUEST MINUTES AFTER THE TIME INTERVAL HAS BEEN EXPLAINED. PT HAS STATED THAT NAUSEA ACCOMPANIES COUGHING FITS THOUGH IS NOT PRESENT AT OTHER TIMES. PT HAS HAD NO EPISODES OF EMESIS.
--- NOTE | 2022-04-09 21:18 | NUR ---
update pt reports to have severe pain in r abd and states pain medication is not working at this time. physician to place orders. will cont to monitor.
--- NOTE | 2022-04-10 05:45 | NUR ---
SHIFT SUMMARY PT ALERT AND ORIENTED X 4. HR STABLE. BP STABLE. NO CP. PT REPORTS PAIN IN L ABD. PT REPORTS PAIN MEDICATION NOT WORKING AT BEGINNING OF SHIFT,PHYSICIAN NOTIFIED. SEE EMAR FOR ORDERS. PT REPORTS THE DILAUDID IS HELPING HER PAIN. PT SBA TO COMMODE.PROTONIX GTT. CALL LIGHT WITHIN REACH. WILL CONT TO MONITOR UNTIL REPORT GIVEN TO DAYSHIFT RN.
[2022-04-10 05:50] LABS: Hematocrit 33.7 % (33.0-51.0); Hemoglobin 11.9 g/dL (11.5-16.0); Mean Corpuscular HGB 33.2 pg (26.0-34.0); Mean Corpuscular HGB Conc 35.3 g/dL (31.5-36.5); Mean Corpuscular Volume 94 fL (80-100); Mean Platelet Volume 9.4 fL (9.1-12.4); Platelet Count 188 K/mm3 (150-400); RDW Coefficient Variation 15.1 % (11.7-14.2); RDW Standard Deviation 52.3 fL (35.1-46.3); Red Blood Cell Count 3.58 M/mm3 (3.80-5.20); White Blood Cell Count 5.58 K/mm3 (4.00-11.30)
[2022-04-10 06:04] LABS: Bun/Creatinine Ratio 7.6 (12.0-20.0); Calcium, Blood 8.8 mg/dL (8.5-10.1); Creatinine, Blood 0.52 mg/dL (0.40-1.00); Potassium, Blood 3.2 mmol/L (3.5-5.5)
[2022-04-10] MEDS ORDERED: PANT20 PO (12:15)
--- NOTE | 2022-04-10 13:43 | NUR ---
DISCHARGE SUMMARY PT WAS TRANSPORTED BY WHEELCHAIR TO PERSONAL VEHICLE. ALL PT BELONGINGS AND DISCHARGE INSTRUCTIONS WERE IN THE PT'S POSSESSION AT THE TIME OF DISCHARGE. PT DID NOT OFFER ANY QUESTIONS OR CONCERNS AT TIME OF DISCHARGE.
== END 2022-04-10 13:11 | disposition home or self-care (01) | DRG 813 ==
LOC: ER 08:12 → PCU 10:39
PROVIDERS: Emergency Medicine; Internal Medicine Gastroenterology; ADMIT Internal Medicine
PROC: 30233K1 Transfusion of Nonautologous Frozen Plasma into Peripheral Vein, Percutaneous Approach (ICD-10-PCS; principal; 2022-04-08)
PROC: 8E0ZXY6 Isolation (ICD-10-PCS; 2022-04-08)
DX: D68.32 Hemorrhagic disorder due to extrinsic circulating anticoagulants (principal); U07.1 COVID-19; K92.0 Hematemesis; D68.2 Hereditary deficiency of other clotting factors; F10.20 Alcohol dependence, uncomplicated; R74.8 Abnormal levels of other serum enzymes; E87.6 Hypokalemia; G40.909 Epilepsy, unspecified, not intractable, without status epilepticus; K70.0 Alcoholic fatty liver; I10 Essential (primary) hypertension; F32.A Depression, unspecified; M41.9 Scoliosis, unspecified; F17.210 Nicotine dependence, cigarettes, uncomplicated; Z88.8 Allergy status to other drugs, medicaments and biological substances; Z88.0 Allergy status to penicillin; Z88.5 Allergy status to narcotic agent; Z79.01 Long term (current) use of anticoagulants; Z86.718 Personal history of other venous thrombosis and embolism; Z98.890 Other specified postprocedural states; Z79.899 Other long term (current) drug therapy; Z76.5 Malingerer [conscious simulation]
CPT/HCPCS: 0241U; 36415; 36430; 71045; 74177; 80048; 80053; 83690; 84703; 85025; 85027; 85610; 85730; 86850; 86900; 86901; 93005; 93010; 96365; 96366; 96368; 96375; 96376; 99285-25; A9270; C1751; C9113; G0480; J0696; J1170; J2060; J2270; J2354; J2405; J3010; J3411; J3430; J3480; J7030; J7050; P9059; Q9967

== ENCOUNTER 2022-05-14 21:09 | Emergency (ER) | payer MEDICARE, OTHER | END 2022-05-15 01:18 | disposition home or self-care (01) | LOC: ER 21:09 | DX: L03.116 Cellulitis of left lower limb (principal); R79.1 Abnormal coagulation profile; I10 Essential (primary) hypertension; F17.210 Nicotine dependence, cigarettes, uncomplicated; Z86.718 Personal history of other venous thrombosis and embolism; Z88.5 Allergy status to narcotic agent; Z88.0 Allergy status to penicillin; Z88.8 Allergy status to other drugs, medicaments and biological substances ==

== ENCOUNTER 2022-07-07 01:30 | Emergency (ER) | payer MEDICARE, OTHER ==
[~2022-07-07] VITALS: Ht 170.2 cm; Wt 63.5 kg
[~2022-07-07 01:30] MED LIST changes: +CLIN300 PO; +Coumadin2 MG PO; +Inderal 20 mg T20 MG; +METSALMENC TOP; +PANT20 PO; +SULTRIDS PO; +WARF5 PO
[2022-07-07 03:51] LABS: BASOPHILS ABSOLUTE AUTO 0.07 K/mm3 (0.00-0.23); BASOPHILS PERCENT AUTO 1 % (0-2); EOSINOPHILS ABSOLUTE AUTO 0.01 K/mm3 (0.00-0.68); EOSINOPHILS PERCENT AUTO 0 % (0-6); Hematocrit 37.3 % (33.0-51.0); Hemoglobin 13.4 g/dL (11.5-16.0); IMMATURE GRAN ABSOLUTE AUTO 0.02 K/mm3 (0.00-0.10); IMMATURE GRAN PERCENT AUTO 0 % (0-1); LYMPHOCYTES ABSOLUTE AUTO 0.96 K/mm3 (0.84-5.20); LYMPHOCYTES PERCENT AUTO 18 % (21-46); MONOCYTES ABSOLUTE AUTO 0.39 K/mm3 (0.16-1.47); MONOCYTES PERCENT AUTO 7 % (4-13); Mean Corpuscular HGB 33.7 pg (26.0-34.0); Mean Corpuscular HGB Conc 35.9 g/dL (31.5-36.5); Mean Corpuscular Volume 94 fL (80-100); Mean Platelet Volume 9.6 fL (9.1-12.4); NEUTROPHILS ABSOLUTE AUTO 3.95 K/mm3 (1.96-9.15); NEUTROPHILS PERCENT AUTO 73 % (41-73); Platelet Count 191 K/mm3 (150-400); RDW Coefficient Variation 12.3 % (11.7-14.2); RDW Standard Deviation 42.7 fL (35.1-46.3); Red Blood Cell Count 3.98 M/mm3 (3.80-5.20)
[2022-07-07 04:12] LABS: Albumin, Blood 3.6 g/dL (3.4-5.0); Albumin/Globulin Ratio 0.9 (0.8-1.8); Bilirubin, Total 0.5 mg/dL (0.1-1.0); Bun/Creatinine Ratio 25.2 (12.0-20.0); Calcium, Blood 8.8 mg/dL (8.5-10.1); Creatinine, Blood 0.48 mg/dL (0.40-1.00); Globulin, Blood 4.1 g/dL (2.2-4.0); Potassium, Blood 3.3 mmol/L (3.5-5.5); Total Protein, Blood 7.7 g/dL (6.4-8.2)
[2022-07-07 04:14] LABS: Prothrombin Time Results 55.1 Sec (9.7-11.5)
[2022-07-07 04:16] LABS: International Normalized Ratio 5.89
[2022-07-07] MEDS ORDERED: PROM25 PO (04:25)
[2022-07-07] MEDS ORDERED: OMEP20ER PO (04:25)
== END 2022-07-07 05:15 | disposition home or self-care (01) ==
LOC: ER 01:30
PROVIDERS: Emergency Medicine
DX: K92.2 Gastrointestinal hemorrhage, unspecified (principal); R79.1 Abnormal coagulation profile; I10 Essential (primary) hypertension; G40.909 Epilepsy, unspecified, not intractable, without status epilepticus; F17.210 Nicotine dependence, cigarettes, uncomplicated; Z88.8 Allergy status to other drugs, medicaments and biological substances; Z88.6 Allergy status to analgesic agent
CPT/HCPCS: 36415; 80053; 83690; 85025; 85610; 96361; 96374; 96375; 99285-25; A9270; C9113; J1170; J2405; J7030

== ENCOUNTER → 2023-01-11 | Outpatient (CLI) | payer MEDICARE, OTHER ==
[~2023-01-11] MED LIST changes: +OMEP20ER PO; +PROM25 PO
== END | disposition home or self-care (01) ==
LOC: LAB 08:41 → LAB SHORT 08:41
DX: N12 Tubulo-interstitial nephritis, not specified as acute or chronic (principal)
CPT/HCPCS: 87077; 87086; 87186

== ENCOUNTER 2023-03-04 20:47 | Emergency (ER) | payer OTHER, MEDICARE ==
[~2023-03-04] VITALS: Ht 170.2 cm; Wt 56.7 kg
[2023-03-04 20:58] VITALS: BP 129/106
== END 2023-03-04 23:54 | disposition home or self-care (01) ==
LOC: ER 20:47
DX: S00.83XA Contusion of other part of head, initial encounter (principal); W01.190A Fall on same level from slipping, tripping and stumbling with subsequent striking against furniture, initial encounter; I10 Essential (primary) hypertension; G40.909 Epilepsy, unspecified, not intractable, without status epilepticus; F17.210 Nicotine dependence, cigarettes, uncomplicated; Z88.8 Allergy status to other drugs, medicaments and biological substances; Z88.5 Allergy status to narcotic agent; Z79.899 Other long term (current) drug therapy; Z79.01 Long term (current) use of anticoagulants
CPT/HCPCS: 70450; 70486; J1885

== ENCOUNTER 2023-04-26 19:22 | Emergency (ER) | payer MEDICARE, OTHER ==
[~2023-04-26] VITALS: Ht 167.6 cm; Wt 54.4 kg
[2023-04-26 20:36] LABS: Albumin, Blood 3.7 g/dL (3.4-5.0); Bilirubin, Total 2.3 mg/dL (0.1-1.0); Bun/Creatinine Ratio 11.1 (12.0-20.0); Calcium, Blood 9.2 mg/dL (8.5-10.1); Creatinine, Blood 0.45 mg/dL (0.40-1.00); Globulin, Blood 3.7 g/dL (2.2-4.0); Potassium, Blood 3.8 mmol/L (3.5-5.5); Total Protein, Blood 7.4 g/dL (6.4-8.2)
[2023-04-26 21:22] LABS: BASOPHILS ABSOLUTE AUTO 0.08 K/mm3 (0.00-0.23); BASOPHILS PERCENT AUTO 1 % (0-2); EOSINOPHILS ABSOLUTE AUTO 0.01 K/mm3 (0.00-0.68); EOSINOPHILS PERCENT AUTO 0 % (0-6); Hematocrit 30.3 % (33.0-51.0); IMMATURE GRAN ABSOLUTE AUTO 0.05 K/mm3 (0.00-0.10); IMMATURE GRAN PERCENT AUTO 0 % (0-1); LYMPHOCYTES ABSOLUTE AUTO 0.23 K/mm3 (0.84-5.20); LYMPHOCYTES PERCENT AUTO 2 % (21-46); MONOCYTES ABSOLUTE AUTO 0.44 K/mm3 (0.16-1.47); MONOCYTES PERCENT AUTO 4 % (4-13); Mean Corpuscular Volume 101 fL (80-100); Mean Platelet Volume 9.4 fL (9.1-12.4); NEUTROPHILS ABSOLUTE AUTO 11.65 K/mm3 (1.96-9.15); NEUTROPHILS PERCENT AUTO 94 % (41-73); Platelet Count 218 K/mm3 (150-400); RDW Coefficient Variation 12.7 % (11.7-14.2); RDW Standard Deviation 47.3 fL (35.1-46.3); Red Blood Cell Count 3.01 M/mm3 (3.80-5.20); White Blood Cell Count 12.46 K/mm3 (4.00-11.30)
[2023-04-27 00:49] VITALS: BP 117/76
[2023-04-27] MEDS ORDERED: ONDA4ODT MM (01:39)
== END 2023-04-27 01:52 | disposition home or self-care (01) ==
LOC: ER 19:22
PROVIDERS: Physician Assistant
DX: A08.4 Viral intestinal infection, unspecified (principal); I10 Essential (primary) hypertension; G40.909 Epilepsy, unspecified, not intractable, without status epilepticus; F17.210 Nicotine dependence, cigarettes, uncomplicated; Z86.718 Personal history of other venous thrombosis and embolism; Z88.5 Allergy status to narcotic agent; Z88.8 Allergy status to other drugs, medicaments and biological substances; Z79.01 Long term (current) use of anticoagulants
CPT/HCPCS: 71046; 80053; 83690; 84484; 85025; 93005; 93010; 96374; 96375; 99284-25; A9270; J1885; J2405

== ENCOUNTER 2023-10-21 19:35 | Emergency (ER) | payer MEDICARE, OTHER ==
[~2023-10-21] VITALS: Ht 167.6 cm; Wt 68.0 kg
[2023-10-21 19:59] VITALS: BP 197/126
== END 2023-10-21 21:00 | disposition home or self-care (01) ==
LOC: ER 19:35
DX: F10.129 Alcohol abuse with intoxication, unspecified (principal); I10 Essential (primary) hypertension; D68.2 Hereditary deficiency of other clotting factors; G40.909 Epilepsy, unspecified, not intractable, without status epilepticus; M41.9 Scoliosis, unspecified; F17.210 Nicotine dependence, cigarettes, uncomplicated; Z79.01 Long term (current) use of anticoagulants; Z79.899 Other long term (current) drug therapy; Z88.5 Allergy status to narcotic agent; Z88.8 Allergy status to other drugs, medicaments and biological substances
CPT/HCPCS: 93005; 93010; 99284-25

== ENCOUNTER 2023-11-03 19:48 | Emergency (ER) | payer OTHER, MEDICARE ==
[~2023-11-03] VITALS: Ht 170.2 cm; Wt 63.5 kg
[2023-11-03 20:13] VITALS: BP 157/119
== END 2023-11-03 21:28 | disposition home or self-care (01) ==
LOC: ER 19:48
DX: S40.021A Contusion of right upper arm, initial encounter (principal); D68.51 Activated protein C resistance; F17.210 Nicotine dependence, cigarettes, uncomplicated; W01.0XXA Fall on same level from slipping, tripping and stumbling without subsequent striking against object, initial encounter; Z79.01 Long term (current) use of anticoagulants
CPT/HCPCS: 73030; 99283-25

== ENCOUNTER 2023-11-08 22:58 | Emergency (ER) | payer MEDICARE, OTHER ==
[~2023-11-08] VITALS: Ht 167.6 cm; Wt 56.7 kg
[2023-11-08 23:32] LABS: BASOPHILS ABSOLUTE AUTO 0.11 K/mm3 (0.00-0.23); BASOPHILS PERCENT AUTO 2 % (0-2); EOSINOPHILS ABSOLUTE AUTO 0.03 K/mm3 (0.00-0.68); EOSINOPHILS PERCENT AUTO 1 % (0-6); Hematocrit 40.5 % (33.0-51.0); IMMATURE GRAN ABSOLUTE AUTO 0.01 K/mm3 (0.00-0.10); IMMATURE GRAN PERCENT AUTO 0 % (0-1); LYMPHOCYTES ABSOLUTE AUTO 2.07 K/mm3 (0.84-5.20); LYMPHOCYTES PERCENT AUTO 34 % (21-46); MONOCYTES ABSOLUTE AUTO 0.61 K/mm3 (0.16-1.47); MONOCYTES PERCENT AUTO 10 % (4-13); Mean Corpuscular HGB 34.8 pg (26.0-34.0); Mean Corpuscular Volume 94 fL (80-100); Mean Platelet Volume 9.1 fL (9.1-12.4); NEUTROPHILS ABSOLUTE AUTO 3.26 K/mm3 (1.96-9.15); NEUTROPHILS PERCENT AUTO 54 % (41-73); Platelet Count 201 K/mm3 (150-400); RDW Coefficient Variation 11.5 % (11.7-14.2); RDW Standard Deviation 40.1 fL (35.1-46.3); Red Blood Cell Count 4.31 M/mm3 (3.80-5.20); White Blood Cell Count 6.09 K/mm3 (4.00-11.30)
[2023-11-08 23:51] LABS: Albumin, Blood 3.6 g/dL (3.4-5.0); Albumin/Globulin Ratio 0.8 (0.8-1.8); Bilirubin, Total 0.4 mg/dL (0.1-1.0); Bun/Creatinine Ratio 19.2 (12.0-20.0); Calcium, Blood 8.9 mg/dL (8.5-10.1); Creatinine, Blood 0.47 mg/dL (0.40-1.00); Globulin, Blood 4.4 g/dL (2.2-4.0); Potassium, Blood 3.3 mmol/L (3.5-5.5)
[2023-11-09] MEDS ORDERED: Ondansetron HCl 2 MG / ML 2ML Vial IV ONE (00:50)
[2023-11-09] MEDS ORDERED: FentaNYL Citrate 50 MCG/ML 2 ML Injection IV ONE (00:50)
[2023-11-09 01:00] VITALS: BP 168/115
== END 2023-11-09 01:58 | disposition home or self-care (01) ==
LOC: ER 22:58
PROVIDERS: Emergency Medicine
DX: S62.306A Unspecified fracture of fifth metacarpal bone, right hand, initial encounter for closed fracture (principal); R04.2 Hemoptysis; D68.2 Hereditary deficiency of other clotting factors; F17.210 Nicotine dependence, cigarettes, uncomplicated; I10 Essential (primary) hypertension; G40.909 Epilepsy, unspecified, not intractable, without status epilepticus; Z79.01 Long term (current) use of anticoagulants; Z79.899 Other long term (current) drug therapy; Y04.8XXA Assault by other bodily force, initial encounter
CPT/HCPCS: 29125; 71045; 73130; 74177; 80053; 85025; 96374-59; 96375-59; 99284-25; J2405; J3010; Q9967

== ENCOUNTER 2024-05-17 16:53 | Observation (INO) | payer MEDICARE, OTHER ==
[~2024-05-17] VITALS: Ht 165.1 cm; Wt 54.3 kg
[~2024-05-17 16:53] MED LIST changes: +Lisinopril2.5 MG PO; +METO50ER PO
[2024-05-17 17:26] LABS: BASOPHILS ABSOLUTE AUTO 0.12 K/mm3 (0.00-0.23); BASOPHILS PERCENT AUTO 1 % (0-2); EOSINOPHILS ABSOLUTE AUTO 0.23 K/mm3 (0.00-0.68); EOSINOPHILS PERCENT AUTO 3 % (0-6); Hematocrit 29.7 % (33.0-51.0); Hemoglobin 10.5 g/dL (11.5-16.0); IMMATURE GRAN ABSOLUTE AUTO 0.38 K/mm3 (0.00-0.10); IMMATURE GRAN PERCENT AUTO 4 % (0-1); LYMPHOCYTES ABSOLUTE AUTO 1.62 K/mm3 (0.84-5.20); LYMPHOCYTES PERCENT AUTO 18 % (21-46); MONOCYTES ABSOLUTE AUTO 1.26 K/mm3 (0.16-1.47); MONOCYTES PERCENT AUTO 14 % (4-13); Mean Corpuscular HGB 35.7 pg (26.0-34.0); Mean Corpuscular HGB Conc 35.4 g/dL (31.5-36.5); Mean Corpuscular Volume 101 fL (80-100); Mean Platelet Volume 10.2 fL (9.1-12.4); NEUTROPHILS ABSOLUTE AUTO 5.32 K/mm3 (1.96-9.15); NEUTROPHILS PERCENT AUTO 60 % (41-73); Platelet Count 396 K/mm3 (150-400); RDW Coefficient Variation 16.4 % (11.7-14.2); RDW Standard Deviation 59.9 fL (35.1-46.3); Red Blood Cell Count 2.94 M/mm3 (3.80-5.20); White Blood Cell Count 8.93 K/mm3 (4.00-11.30)
[2024-05-17 17:47] LABS: Albumin, Blood 3.1 g/dL (3.4-5.0); Albumin/Globulin Ratio 0.7 (0.8-1.8); Bilirubin, Total 0.4 mg/dL (0.1-1.0); Bun/Creatinine Ratio 11.3 (12.0-20.0); Calcium, Blood 8.7 mg/dL (8.5-10.1); Creatinine, Blood 2.84 mg/dL (0.40-1.00); Globulin, Blood 4.4 g/dL (2.2-4.0); Potassium, Blood 2.4 mmol/L (3.5-5.5); Total Protein, Blood 7.5 g/dL (6.4-8.2)
[2024-05-17] MEDS ORDERED: Potassium Chloride 20 MEQ TabCR PO ONE (18:05)
[2024-05-17] MEDS ORDERED: NS 1,000 ML IV SCH ×2 (18:05→20:00)
[2024-05-17] MEDS ORDERED: Potassium Chloride 10 MEQ in NS 100 ML IV ONE (18:05)
[2024-05-17] MEDS ORDERED: Potassium Chl 10MEQ/Water100ML 100 ML IV ONE (18:25)
[2024-05-17] MEDS ORDERED: Ondansetron HCl 2 MG / ML 2ML Vial IV PRN (19:40)
[2024-05-17] MEDS ORDERED: Acetaminophen 650 MG Supp PR PRN (19:40)
[2024-05-17] MEDS ORDERED: Acetaminophen 325 MG TABLET PO PRN (19:45)
[2024-05-17 20:00] LABS: International Normalized Ratio 1.11; Prothrombin Time Results 11.8 Sec (9.7-11.5)
[2024-05-17 20:04] LABS: Phosphorus, Blood 3.9 mg/dL (2.5-4.9)
[2024-05-17 20:32] LABS: Source, Urine Clean Catch
[2024-05-17 20:36] LABS: Blood, Urine 2+ (Neg); Glucose Qualitative, Urine Neg (Neg); Ketones, Urine Neg (Neg); Leukocyte Esterase, Urine 3+ (Neg); Nitrite, Urine Pos (Neg); Protein, Urine 3+ (Neg); Specific Gravity, Urine 1.015 (1.003-1.022); Urobilinogen, Urine NORM (Normal)
[2024-05-17 20:39] LABS: Bilirubin, Urine 2+ (Neg)
[2024-05-17 20:41] LABS: Appearance, Urine Hazy (Clear); Color, Urine Yellow (P-Yellow)
[2024-05-17 20:45] LABS: White Blood Cells, Urine 25-50 /hpf (0-5)
[2024-05-17 20:46] LABS: U Amphetamine Screen Not Detected; U Barbituate Screen Not Detected; U Benzodiazapine Screen DETECTED; U Buprenorphine Screen Not Detected; U Cannabinoids Screen Not Detected; U Cocaine Screen Not Detected; U Methadone Screen Not Detected; U Methamphetamine Screen Not Detected; U Opiates Screen Not Detected; U Oxycodone Screen Not Detected; U Phencyclidine Screen Not Detected
[2024-05-17 20:47] LABS: Bacteria Many /hpf; Squamous Epithelial Cells Mod /hpf (Few); Transitional Epithelial Cells Rare /hpf (0-Rare)
[2024-05-17 21:05] VITALS: BP 104/80
[2024-05-17 21:30] VITALS: BP 93/75
[2024-05-17 22:00] VITALS: BP 110/62
[2024-05-17 22:30] VITALS: BP 114/93
[2024-05-17 23:00] VITALS: BP 106/75
[2024-05-17 23:06] LABS: Hematocrit 27.5 % (33.0-51.0); Hemoglobin 9.6 g/dL (11.5-16.0)
[2024-05-17] MEDS ORDERED: CefTRIAXone Sodium 1,000 MG in NS 100 ML IV SCH (23:20)
[2024-05-17] MEDS ORDERED: NS 100 ML IV ONE (23:24)
[2024-05-17] MEDS ORDERED: CefTRIAXone 1000 MG Vial ONE (23:24)
[2024-05-17 23:33] LABS: Albumin, Blood 2.5 g/dL (3.4-5.0); Anion Gap 11 mmol/L (3-11); Blood Urea Nitrogen 34 mg/dL (8-24); Bun/Creatinine Ratio 12.2 (12.0-20.0); CO2, Blood 17 mmol/L (21-32); Calcium, Blood 7.8 mg/dL (8.5-10.1); Chloride, Blood 118 mmol/L (98-108); Creatinine, Blood 2.78 mg/dL (0.40-1.00); Glomerular Filtration Rate 20 (60-); Glucose, Blood 90 mg/dL (70-99); Magnesium, Blood 1.4 mg/dL (1.6-2.4); Phosphorus, Blood 4.1 mg/dL (2.5-4.9); Sodium, Blood 143 mmol/L (136-145)
[2024-05-18] VITALS (9 sets, daily range): BP systolic 83–134; BP diastolic 60–89
[2024-05-18] MEDS ORDERED: Lactated Ringer's 1,000 ML IV SCH (00:20)
[2024-05-18] MEDS ORDERED: Midodrine 5 MG Tab PO SCH (01:00)
[2024-05-18 03:48] LABS: Hemoglobin 9.8 g/dL (11.5-16.0); Mean Corpuscular HGB 35.1 pg (26.0-34.0); Mean Corpuscular Volume 100 fL (80-100); Mean Platelet Volume 10.1 fL (9.1-12.4); Platelet Count 369 K/mm3 (150-400); RDW Coefficient Variation 16.6 % (11.7-14.2); RDW Standard Deviation 61.2 fL (35.1-46.3); Red Blood Cell Count 2.79 M/mm3 (3.80-5.20); White Blood Cell Count 8.67 K/mm3 (4.00-11.30)
[2024-05-18 04:19] LABS: BAND PERCENT MAN 4 % (0-8); BASOPHILS PERCENT MAN 0 % (0-2); EOSINOPHILS PERCENT MAN 0 % (0-6); LYMPHOCYTES ABSOLUTE MAN 1.56 K/mm3 (0.84-5.20); LYMPHOCYTES PERCENT MAN 18 % (21-46); METAMYELOCYTE ABSOLUTE MAN 0.08 K/mm3 (0.00-0.00); METAMYELOCYTE PERCENT MAN 1 % (0-0); MONOCYTES ABSOLUTE MAN 0.69 K/mm3 (0.16-1.47); MONOCYTES PERCENT MAN 8 % (4-13); MYELOCYTE ABSOLUTE MAN 0.17 K/mm3 (0.00-0.00); MYELOCYTE PERCENT MAN 2 % (0-0); NEUTROPHILS ABSOLUTE MAN 6.15 K/mm3 (1.96-9.15); SEG NEUTROPHILS PERCENT MAN 67 % (41-73); TOTAL CELLS COUNTED 100
[2024-05-18 04:47] LABS: Magnesium, Blood 1.3 mg/dL (1.6-2.4)
[2024-05-18 04:49] LABS: Albumin, Blood 2.5 g/dL (3.4-5.0); Albumin/Globulin Ratio 0.8 (0.8-1.8); Bilirubin, Total 0.3 mg/dL (0.1-1.0); Bun/Creatinine Ratio 12.1 (12.0-20.0); Calcium, Blood 7.5 mg/dL (8.5-10.1); Creatinine, Blood 2.64 mg/dL (0.40-1.00); Globulin, Blood 3.3 g/dL (2.2-4.0); Phosphorus, Blood 4.1 mg/dL (2.5-4.9); Potassium, Blood 2.7 mmol/L (3.5-5.5); Total Protein, Blood 5.8 g/dL (6.4-8.2)
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
[2024-05-18] MEDS ORDERED: Potassium Chloride 40 MEQ in NS 250 ML IV ONE (08:55)
[2024-05-18] MEDS ORDERED: NS KCl 20mEq 1,000 ML IV SCH (09:00)
[2024-05-18] MEDS ORDERED: NS 1,000 ML IV SCH (09:15)
[2024-05-18] MEDS ORDERED: LOSARTAN POTAS100 M1 (12:25)
[2024-05-18] MEDS ORDERED: OXYC10TA19 PO (12:26)
[2024-05-18] MEDS ORDERED: Mag Sulfate 1 GM/D5% 100ML 100 ML IV STA (12:57)
[2024-05-18 13:30] LABS: Bun/Creatinine Ratio 12.7 (12.0-20.0); Calcium, Blood 7.6 mg/dL (8.5-10.1); Creatinine, Blood 2.44 mg/dL (0.40-1.00); Potassium, Blood 3.5 mmol/L (3.5-5.5)
[2024-05-18] MEDS ORDERED: Metoclopramide HCl 5MG / ML 2ML Vial IV PRN (13:40)
[2024-05-18] MEDS ORDERED: PANT40 PO (14:14)
[2024-05-18] MEDS ORDERED: LOSARTAN-HCTZ1 EAC5 PO (14:14)
[2024-05-18] MEDS ORDERED: OMEP20ER PO (14:14)
[2024-05-18] MEDS ORDERED: PREG75 PO (14:15)
[2024-05-18] MEDS ORDERED: CefTRIAXone 1000 MG Vial ONE (15:46)
[2024-05-18] MEDS ORDERED: NS 100 ML IV ONE (15:46)
--- NOTE | 2024-05-18 18:52 | NUR ---
SHIFT SUMMARY NERUO: PT ALERT AND ORIENTED X4. PT FOLLOWING COMMANDS. PT HAS HAD CONFUSION OFF AND ON DURING SHIFT WHICH FAMILY STATES IS NORMAL FOR HER. PT APPEARS TO BE DROWSY OFF AND ON THROUGHOUT THE SHIFT. PT HAS BEEN UNCOMLIANT WITH TREATMENT GOALS THIS EVENING. PT WANTED TO LEAVE AMA BUT AGREED TO STAY UNTIL THE MORNING. PT STATES THAT SHE NEEDS STRONGER PAIN MEDS AND WANTS TO LEAVE BECAUSE NONE ARE BEING GIVEN TO HER HERE. RESP: LUNG SOUNDS CLEAR THROUGHOUT. DENIES ANY SOB. PT ON RA. CARDIAC: PT NSR IN THE 70'S-90'S. DENIES ANY CP. PTS POTASSIUM WAS LOW THIS AM AND WAS REPLACED VIA IV THROUGHOUT SHIFT. GI/: PT WAS ABLE TO VOID ON THE COMMODE. PT HAD A BOWEL MOVEMENT THIS AFTERNOON. STOOL SAMPLE WAS SENT TO THE LAB PER PROVIDER ORDERS. NO OTHER SIGNIFICANT CHANGES HAPPENED DURING SHIFT. PT WAS ASKED ABOUT HER HOME MEDS. FATHER WAS ABLE TO BRING MEDS IN TO VERIFY MEDS AFTER PT SAID THAT THE VERIFIED MEDS THROUGHOUT THE PHARMACY WERE WRONG. PTS FATHER STATES THAT PT WAS ON A PAIN CONTRACT THAT SHE FAILED AND THAT SHE NO LONGER RECIEVES A PAIN MED PERSCRIPTION.
[2024-05-18] MEDS ORDERED: Pregabalin 75 MG Cap PO SCH (21:00)
[2024-05-18] MEDS ORDERED: Pantoprazole Sodium 40 MG Tab PO SCH (21:00)
[2024-05-18] MEDS ORDERED: TraZODone HCl 50 MG Tab PO PRN (22:30)
[2024-05-18] MEDS ORDERED: D5W-1/2NS KCl 20mEq 1,000 ML IV SCH (23:00)
--- NOTE | 2024-05-19 00:08 | NUR ---
ASSUMPTION OF CARE/AMA THIS RN ASSUMED CARE AT 1900, REPORT FROM MARGARITA SANTOS. PT IN ROOM, SITTING UP IN THE BED, WATCHING TV. PT A&O X3-4, SLEEPY BUT AROUSABLE AND MORE ALERT THAN PREVIOUS. PT SPEECH SOFT AND MUMBLED BUT ABLE TO CONVERSE SOME AND ANSWER QUESTIONS. PT APPEARS WITHDRAWN AND FLAT, NOT MAKING EYE CONTACT WITH THIS RN. VSS; SBP SOFT AT 100 BUT STABLE, MAP GREATER THAN 65, HRR NSR IN 70-80'S, ON RA WITH SPO2 98-100%. DENIES CP/PRESSURE, DIZZINESS, SOB, N/V. PT C/O OF "PAIN EVERYWHERE". STATES SHE NEEDS "PAIN PILLS OR SOMETHING TO BE KNOCKED OUT". THIS RN PROVIDED EDUCATION ON REASON SHE IS HERE AND TREATMENT PLAN. PT WITH RECENT FAILED NARCOTIC PLAN AND RX REVOKED AND DC'D. PT MILDLY UPSET AND ANXIOUS ABOUT THIS. DECLINING OTHER INTERVENTIONS FOR PAIN AND DECLINING TYLENOL, STATES "NO, I WILL NOT TAKE THIS, IT IS KILLING ME". RN AGAIN REINFORCED EDUCATION. PT BECAME QUIET AND FELL ASLEEP. AROUND 2099, PT FOUND TO BE OUT OF BED, DRAGGING IV POLE AROUND AND TRYING TO PUT ON HER OWN CLOTHES. THIS RN ASKED WHAT WAS GOING ON AND WHERE SHE WAS GOING. PT STATES SHE IS GOING HOME AND NO LONGER WANTS TO BE HERE BECAUSE "THIS PLACE IS CREEPY" AND "THIS HOSPITAL IS NOT TREATING ME OR HELPING ME". PT EXPLAINED WE SHOULD BE GIVING HER PAIN MEDICATIONS AND IV PAIN MEDICATION TO "HELP HER". RN PROVIDED EDUCATION AND TREATMENT PLAN, REMINDED PT THAT SHE IS HERE FOR ELECTROLYTE IMBALANCES, HYPOTENSION AND ACUTE RENAL INSUFFICIENCY. PROVIDED PLAN OF CARE TO PT. DISCUSSED CONTINUING TO STAY IN THE HOSPITAL FOR CARE, PT AGREED AT THIS TIME. AROUND 2144, PT AGAIN FOUND TO BE OUT OF BED WITH IV POLE AND ALL OF HER CLOTHES ON. STATES "I AM LEAVING AND ACTUALLY AM NOT GOING TO STAY" BECAUSE OF "PAIN AND HOSPITAL NOT PROVIDING CARE FOR HER". SOUND TECHNICIAN AND RESIDENT NOTIFIED. RESIDENT IN TO SEE PT, DISCUSSION ABOUT PLAN OF CARE AND RISKS/BENEFITS WENT OVER WITH PT FROM RESIDENT. PT VERBALIZES UNDERSTANDING OF RISKS OF LEAVING. LIDOCAINE PATCH AND OTHER INTERVENTIONS OFFERED, PT DECLINES AND STILL WOULD LIKE TO LEAVE AMA. PT BELONGINGS SENT WITH PT AND WALKED OVER TO EXIT BY THIS RN. NOTIFIED NURSING IMPREGNATING HELPER AND SOUND TECHNICIAN.
[2024-05-19 12:39] LABS: Stool Occult Blood Guaiac 1 Neg (Neg)
== END 2024-05-18 22:18 | disposition left against medical advice (07) ==
LOC: ER 16:53 → PCU 16:54
PROVIDERS: Internal Medicine Endocrinology, Diabetes & Metabolism; Physician Assistant; ADMIT Student in an Organized Health Care Education/Training Program
DX: N17.9 Acute kidney failure, unspecified (principal); N39.0 Urinary tract infection, site not specified; E87.6 Hypokalemia; G40.909 Epilepsy, unspecified, not intractable, without status epilepticus; F10.90 Alcohol use, unspecified, uncomplicated; F17.290 Nicotine dependence, other tobacco product, uncomplicated; D68.51 Activated protein C resistance; I10 Essential (primary) hypertension; D50.9 Iron deficiency anemia, unspecified; Z88.8 Allergy status to other drugs, medicaments and biological substances
CPT/HCPCS: 36415; 76770; 80048; 80053; 80069; 81001; 82140; 82272; 82570; 82607; 82746; 82947; 83735; 84100; 84300; 85014; 85018; 85025; 85610; 87077; 87086; 87186; 93005; 93010; 94762; 96365; 99284-25; A9270; J0696; J3475; J3480; J7030; J7050; J7120

== ENCOUNTER 2024-06-08 21:01 | Emergency (ER) | payer MEDICARE, OTHER ==
[~2024-06-08] VITALS: Ht 175.3 cm; Wt 61.2 kg
[~2024-06-08 21:01] MED LIST changes: +LOSARTAN POTAS100 M1; +LOSARTAN-HCTZ1 EAC5 PO; +OXYC10TA19 PO; +PANT40 PO; +PREG75 PO
[2024-06-08 22:12] LABS: BASOPHILS ABSOLUTE AUTO 0.11 K/mm3 (0.00-0.23); BASOPHILS PERCENT AUTO 1 % (0-2); EOSINOPHILS ABSOLUTE AUTO 0.18 K/mm3 (0.00-0.68); EOSINOPHILS PERCENT AUTO 2 % (0-6); Hematocrit 28.8 % (33.0-51.0); Hemoglobin 10.2 g/dL (11.5-16.0); IMMATURE GRAN ABSOLUTE AUTO 0.04 K/mm3 (0.00-0.10); IMMATURE GRAN PERCENT AUTO 1 % (0-1); LYMPHOCYTES ABSOLUTE AUTO 2.92 K/mm3 (0.84-5.20); LYMPHOCYTES PERCENT AUTO 38 % (21-46); MONOCYTES ABSOLUTE AUTO 0.55 K/mm3 (0.16-1.47); MONOCYTES PERCENT AUTO 7 % (4-13); Mean Corpuscular HGB Conc 35.4 g/dL (31.5-36.5); Mean Corpuscular Volume 102 fL (80-100); Mean Platelet Volume 10.3 fL (9.1-12.4); NEUTROPHILS ABSOLUTE AUTO 3.95 K/mm3 (1.96-9.15); NEUTROPHILS PERCENT AUTO 51 % (41-73); Platelet Count 233 K/mm3 (150-400); RDW Coefficient Variation 16.6 % (11.7-14.2); RDW Standard Deviation 62.4 fL (35.1-46.3); Red Blood Cell Count 2.83 M/mm3 (3.80-5.20); White Blood Cell Count 7.75 K/mm3 (4.00-11.30)
[2024-06-08 22:21] VITALS: BP 98/80
== END 2024-06-08 23:24 | disposition left against medical advice (07) ==
LOC: ER 21:01
PROVIDERS: Emergency Medicine
DX: R07.9 Chest pain, unspecified (principal); Z53.29 Procedure and treatment not carried out because of patient's decision for other reasons; Z79.899 Other long term (current) drug therapy
CPT/HCPCS: 71045; 85025; 93005; 93010; 99285-25

== ENCOUNTER 2024-06-10 19:39 | Emergency (ER) | payer MEDICARE, OTHER ==
[~2024-06-10] VITALS: Ht 172.7 cm; Wt 63.5 kg
[2024-06-10 19:52] VITALS: BP 112/91
[2024-06-10] MEDS ORDERED: Ketorolac Tromethamine 15mg Vial IV ONE (20:00)
[2024-06-10 20:05] LABS: BASOPHILS ABSOLUTE AUTO 0.07 K/mm3 (0.00-0.23); BASOPHILS PERCENT AUTO 1 % (0-2); EOSINOPHILS PERCENT AUTO 1 % (0-6); Hematocrit 32.6 % (33.0-51.0); Hemoglobin 11.3 g/dL (11.5-16.0); IMMATURE GRAN ABSOLUTE AUTO 0.03 K/mm3 (0.00-0.10); IMMATURE GRAN PERCENT AUTO 0 % (0-1); LYMPHOCYTES ABSOLUTE AUTO 2.52 K/mm3 (0.84-5.20); LYMPHOCYTES PERCENT AUTO 35 % (21-46); MONOCYTES ABSOLUTE AUTO 0.68 K/mm3 (0.16-1.47); MONOCYTES PERCENT AUTO 9 % (4-13); Mean Corpuscular HGB 35.4 pg (26.0-34.0); Mean Corpuscular HGB Conc 34.7 g/dL (31.5-36.5); Mean Corpuscular Volume 102 fL (80-100); Mean Platelet Volume 9.2 fL (9.1-12.4); NEUTROPHILS ABSOLUTE AUTO 3.83 K/mm3 (1.96-9.15); NEUTROPHILS PERCENT AUTO 53 % (41-73); Platelet Count 209 K/mm3 (150-400); Red Blood Cell Count 3.19 M/mm3 (3.80-5.20); White Blood Cell Count 7.23 K/mm3 (4.00-11.30)
[2024-06-10 20:22] LABS: Albumin, Blood 3.5 g/dL (3.4-5.0); Albumin/Globulin Ratio 0.7 (0.8-1.8); Bilirubin, Total 0.2 mg/dL (0.1-1.0); Bun/Creatinine Ratio 30.1 (12.0-20.0); Calcium, Blood 8.5 mg/dL (8.5-10.1); Creatinine, Blood 0.43 mg/dL (0.40-1.00); Globulin, Blood 4.7 g/dL (2.2-4.0); Potassium, Blood 4.3 mmol/L (3.5-5.5); Total Protein, Blood 8.2 g/dL (6.4-8.2)
== END 2024-06-10 20:42 | disposition left against medical advice (07) ==
LOC: ER 19:39
PROVIDERS: Emergency Medicine
DX: R07.89 Other chest pain (principal); I10 Essential (primary) hypertension; F17.210 Nicotine dependence, cigarettes, uncomplicated; Z79.899 Other long term (current) drug therapy; Z88.5 Allergy status to narcotic agent; Z88.8 Allergy status to other drugs, medicaments and biological substances
CPT/HCPCS: 71045; 80053; 84484; 85025; 93005; 93010; 96374; 99285-25; J1885

== ENCOUNTER → 2024-09-11 | Outpatient (CLI) | payer MEDICARE, OTHER | END | disposition home or self-care (01) | LOC: LAB SHORT 13:42 → LAB 13:42 | DX: R30.0 Dysuria (principal) | CPT/HCPCS: 87077; 87086; 87186 ==

== ENCOUNTER 2025-06-04 21:50 | Emergency (ER) | payer MEDICARE, OTHER ==
[~2025-06-04] VITALS: Ht 175.3 cm; Wt 63.5 kg
[2025-06-04 21:50] VITALS: BP 151/106
[2025-06-04 22:14] LABS: BASOPHILS ABSOLUTE AUTO 0.12 K/mm3 (0.00-0.23); BASOPHILS PERCENT AUTO 2 % (0-2); EOSINOPHILS ABSOLUTE AUTO 0.12 K/mm3 (0.00-0.68); EOSINOPHILS PERCENT AUTO 2 % (0-6); Hematocrit 32.5 % (33.0-51.0); Hemoglobin 11.8 g/dL (11.5-16.0); IMMATURE GRAN ABSOLUTE AUTO 0.05 K/mm3 (0.00-0.10); IMMATURE GRAN PERCENT AUTO 1 % (0-1); LYMPHOCYTES ABSOLUTE AUTO 1.89 K/mm3 (0.84-5.20); LYMPHOCYTES PERCENT AUTO 25 % (21-46); MONOCYTES ABSOLUTE AUTO 0.95 K/mm3 (0.16-1.47); MONOCYTES PERCENT AUTO 12 % (4-13); Mean Corpuscular HGB Conc 36.3 g/dL (31.5-36.5); Mean Corpuscular Volume 99 fL (80-100); NEUTROPHILS ABSOLUTE AUTO 4.52 K/mm3 (1.96-9.15); NEUTROPHILS PERCENT AUTO 59 % (41-73); NRBC ABSOLUTE 0.00 K/mm3 (0.00-0.02); NRBC Auto 0.0 /100 WBC (0.0-0.2); Platelet Count 170 K/mm3 (150-400); RDW Coefficient Variation 12.1 % (11.7-14.2); RDW Standard Deviation 44.8 fL (35.1-46.3)
[2025-06-04 22:34] LABS: Alanine Aminotransfer (ALT/SGP 58.0 U/L (12-78); Albumin, Blood 4.0 g/dL (3.4-5.0); Albumin/Globulin Ratio 1.0 (0.8-1.8); Anion Gap 14.0 mmol/L (3-11); Aspartate Aminotrans (AST/SGOT 104.0 U/L (12-37); Bilirubin, Total 0.4 mg/dL (0.1-1.0); Blood Urea Nitrogen 6.0 mg/dL (8-24); CO2, Blood 21.0 mmol/L (21-32); Calcium, Blood 9.0 mg/dL (8.5-10.1); Chloride, Blood 96.0 mmol/L (98-108); Creatinine, Blood 0.62 mg/dL (0.40-1.00); Globulin, Blood 4.0 g/dL (2.2-4.0); Glucose, Blood 83.0 mg/dL (70-99); Magnesium, Blood 1.8 mg/dL (1.6-2.4); Potassium, Blood 3.9 mmol/L (3.5-5.5); Sodium, Blood 127.0 mmol/L (136-145); Total Protein, Blood 8.0 g/dL (6.4-8.2)
[2025-06-04 22:36] LABS: Prothrombin Time Results 10.3 Sec (9.7-11.5)
[2025-06-04] MEDS ORDERED: XARELTO20 MG PO (22:51)
[2025-06-04] MEDS ORDERED: WARF5 (22:51)
[2025-06-04] MEDS ORDERED: METO25ER (22:53)
[2025-06-04] MEDS ORDERED: NS 1,000 ML IV SCH (23:05)
[2025-06-04] MEDS ORDERED: Ketorolac Tromethamine 15mg Vial IV ONE (23:15)
[2025-06-05] MEDS ORDERED: Voltaren100 GM TOP (00:06)
[2025-06-05] MEDS ORDERED: Robaxin750 MG PO (00:06)
== END 2025-06-05 00:40 | disposition home or self-care (01) ==
LOC: ER 21:50
PROVIDERS: Student in an Organized Health Care Education/Training Program
DX: S22.31XA Fracture of one rib, right side, initial encounter for closed fracture (principal); S01.81XA Laceration without foreign body of other part of head, initial encounter; S40.011A Contusion of right shoulder, initial encounter; S80.212A Abrasion, left knee, initial encounter; S80.211A Abrasion, right knee, initial encounter; F10.20 Alcohol dependence, uncomplicated; Y90.9 Presence of alcohol in blood, level not specified; Z79.899 Other long term (current) drug therapy; F17.210 Nicotine dependence, cigarettes, uncomplicated; Z79.01 Long term (current) use of anticoagulants; I10 Essential (primary) hypertension; W17.89XA Other fall from one level to another, initial encounter
CPT/HCPCS: 12011; 70450; 71045; 72125; 73030; 80053; 83735; 85025; 85610; 85730; 86850; 86900; 86901; 96361; 96374; 99285-25; A9270; J1885; J7030